=== PATIENT | female | born 1995 | race Caucasian/White ===

== ENCOUNTER 2017-11-18 07:12 | Emergency (ER) | payer OTHER ==
--- NOTE | 2017-11-18 07:56 | ED ---
Female Urogenital HPI - General Chief complaint: Vaginal Bleeding Stated complaint: female gu Time Seen by Provider: 11/18/17 07:27 Source: patient, RN notes reviewed Mode of arrival: ambulatory Limitations: no limitations - History of Present Illness Initial comments: This a 22-year-old female sent emergency Department chief complaint of vaginal spotting and . Patient states that she is A0 and states her last mental cycle was at the end of September. Patient states that she noticed light spotting when she wiped last night. Patient states she has no abdominal pain or cramping at this time. Patient admits to some nausea without vomiting. Denies any diarrhea, constipation, dysuria, hematuria, fever, chills. - Related Data Previous Rx's Medication Instructions Recorded Nitrofurantoin Monohyd/M-Cryst 100 mg PO Q12HR #14 cap 11/18/17 [Macrobid] Allergies Allergy/AdvReac Type Severity Reaction Status Date / Time No Known Allergies Allergy Verified 11/18/17 08:42 Review of Systems ROS Statement: Those systems with pertinent positive or pertinent negative responses have been documented in the HPI. ROS Other: All systems not noted in ROS Statement are negative. Past Medical History Past Medical History: No Reported History History of Any Multi-Drug Resistant Organisms: None Reported Past Surgical History: Section Past Anesthesia/Blood Transfusion Reactions: No Reported Reaction Past Psychological History: No Psychological Hx Reported Smoking Status: Never smoker Past Alcohol Use History: None Reported Past Drug Use History: None Reported General Exam Limitations: no limitations General appearance: alert, in no apparent distress Head exam: Present: atraumatic, normocephalic, normal inspection Neck exam: Present: normal inspection, full ROM. Absent: tenderness, meningismus, lymphadenopathy Respiratory exam: Present: normal lung sounds bilaterally. Absent: respiratory distress, wheezes, rales, rhonchi, stridor Cardiovascular Exam: Present: regular rate, normal rhythm, normal heart sounds. Absent: systolic murmur, diastolic murmur, rubs, gallop, clicks GI/Abdominal exam: Present: soft, normal bowel sounds. Absent: distended, tenderness, guarding, rebound, rigid Back exam: Absent: CVA tenderness (R), CVA tenderness (L) Skin exam: Present: warm, dry, intact, normal color. Absent: rash Course Vital Signs 11/18/17 07:13 Temperature 98.5 F Pulse Rate 82 Respiratory 18 Rate Blood Pressure 119/79 O2 Sat by Pulse 100 Oximetry Medical Decision Making - Medical Decision Making 22-year-old female presents emergency department for spotting early . Patient had ultrasound which was abnormal and there is a gestational sac but no pole. There is a large subchorionic bleed and patient needs to be rule out to have more . I did expand that she needs a repeat hCG in 2 days and repeat ultrasound by ELECTRIC BLANKET WIRER. Patient states she is scheduled follow-up appointment. Return parameters were discussed. Patient also has urinary tract infection which this was cultured and will be treated for - Lab Data Result diagrams: 11/18/17 07:54 Lab Results 11/18/17 11/18/17 11/18/17 Range/Units 07:54 07:54 07:54 WBC 13.0 H (3.8-10.6) k/uL RBC 4.97 (3.80-5.40) m/uL Hgb 13.3 (11.4-16.0) gm/dL Hct 40.5 (34.0-46.0) % MCV 81.5 (80.0-100.0) fL MCH 26.7 (25.0-35.0) pg MCHC 32.7 (31.0-37.0) g/dL RDW 14.1 (11.5-15.5) % Plt Count 322 (150-450) k/uL Neutrophils % 76 % Lymphocytes % 18 % Monocytes % 4 % Eosinophils % 1 % Basophils % 0 % Neutrophils # 9.8 H (1.3-7.7) k/uL Lymphocytes # 2.3 (1.0-4.8) k/uL Monocytes # 0.6 (0-1.0) k/uL Eosinophils # 0.1 (0-0.7) k/uL Basophils # 0.0 (0-0.2) k/uL HCG, Quant 45114.9 mIU/mL Urine Color Urine Appearance (Clear) Urine pH (5.0-8.0) Ur Specific [place] (1.001-1.035) Urine Protein (Negative) Urine Glucose (UA) (Negative) Urine Ketones (Negative) Urine Blood (Negative) Urine Nitrite (Negative) Urine Bilirubin (Negative) Urine Urobilinogen (<2.0) mg/dL Ur Leukocyte Esterase (Negative) Urine RBC (0-5) /hpf Urine WBC (0-5) /hpf Ur Squamous Epith Cells (0-4) /hpf Amorphous Sediment (None) /hpf Urine Bacteria (None) /hpf Urine Mucus (None) /hpf Blood Type A Positive Blood Type Recheck No 11/18/17 Range/Units 07:54 WBC (3.8-10.6) k/uL RBC (3.80-5.40) m/uL Hgb (11.4-16.0) gm/dL Hct (34.0-46.0) % MCV (80.0-100.0) fL MCH (25.0-35.0) pg MCHC (31.0-37.0) g/dL RDW (11.5-15.5) % Plt Count (150-450) k/uL Neutrophils % % Lymphocytes % % Monocytes % % Eosinophils % % Basophils % % Neutrophils # (1.3-7.7) k/uL Lymphocytes # (1.0-4.8) k/uL Monocytes # (0-1.0) k/uL Eosinophils # (0-0.7) k/uL Basophils # (0-0.2) k/uL HCG, Quant mIU/mL Urine Color Yellow Urine Appearance Cloudy H (Clear) Urine pH 5.5 (5.0-8.0) Ur Specific [place] 1.016 (1.001-1.035) Urine Protein Negative (Negative) Urine Glucose (UA) Negative (Negative) Urine Ketones Negative (Negative) Urine Blood Negative (Negative) Urine Nitrite Negative (Negative) Urine Bilirubin Negative (Negative) Urine Urobilinogen <2.0 (<2.0) mg/dL Ur Leukocyte Esterase Moderate H (Negative) Urine RBC 1 (0-5) /hpf Urine WBC 26 H (0-5) /hpf Ur Squamous Epith Cells 8 H (0-4) /hpf Amorphous Sediment Rare H (None) /hpf Urine Bacteria Moderate H (None) /hpf Urine Mucus Moderate H (None) /hpf Blood Type Blood Type Recheck Disposition Clinical Impression: Urinary tract infection, Threatened miscarriage in early Disposition: HOME SELF-CARE Condition: Stable Instructions: Threatened Miscarriage (ED) Additional Instructions: Please follow up for repeat hCG lab work and ultrasound. Please return to the Emergency Department if symptoms worsen or any other concerns. Prescriptions: Nitrofurantoin Monohyd/M-Cryst [Macrobid] 100 mg PO Q12HR #14 cap Is patient prescribed a controlled substance at d/c from ED?: No Referrals: None,Stated [Primary Care Provider] - 1-2 days Time of Disposition: 09:59
[2017-11-18 08:29] LABS: Amorphous Sediment,Urine Rare /hpf; Appearance,Urine Cloudy (Clear); Bacteria,Urine Moderate /hpf; Bilirubin,Urine Negative (Negative); Blood,Urine Negative (Negative); Color,Urine Yellow; Glucose,Urine (UA) Negative (Negative); Ketones,Urine Negative (Negative); Leukocyte Esterase,Urine Moderate (Negative); Mucus,Urine Moderate /hpf; Nitrite,Urine Negative (Negative); PH, Urine 5.5 (5.0-8.0); Protein,Urine Negative (Negative); RBC,Urine 1 /hpf (0-5); Specific Gravity,Urine 1.016 (1.001-1.035); Squamous Epithelial Cell,Urine 8 /hpf (0-4); Urobilinogen,Urine <2.0 mg/dL (<2.0); WBC,Urine 26 /hpf (0-5)
[2017-11-18 08:30] LABS: Basophils % (A) 0 %; Eosinophils # (A) 0.1 k/uL (0-0.7); Eosinophils % (A) 1 %; HCT 40.5 % (34.0-46.0); HGB 13.3 gm/dL (11.4-16.0); Lymphocytes # (A) 2.3 k/uL (1.0-4.8); Lymphocytes % (A) 18 %; MCH 26.7 pg (25.0-35.0); MCHC 32.7 g/dL (31.0-37.0); MCV 81.5 fL (80.0-100.0); Mean Platelet Volume 6.7; Monocytes # (A) 0.6 k/uL (0-1.0); Monocytes % (A) 4 %; Neutrophils # (A) 9.8 k/uL (1.3-7.7); Neutrophils % (A) 76 %; Platelet Count 322 k/uL (150-450); RBC 4.97 m/uL (3.80-5.40); RDW 14.1 % (11.5-15.5)
--- NOTE | 2017-11-18 08:30 | US ---
EXAMINATION TYPE: Transabdominal DATE OF EXAM: 05/11/17 COMPARISON: NONE CLINICAL HISTORY: Pain. Spotting yesterday EXAM PERFORMED: Transvaginal (TV) and Transabdominal (TA) EXAM MEASUREMENTS: GESTATIONAL AGE / DATING Physician Established: Not yet established Dates by LMP: LMP unknown Dates by First Scan: No previous this is first scan Dates by Current Scan for: No pole visualized, dates by gestational sac only ( 6 weeks/1 days ) EDC: 07/13/2018 MATERNAL ANATOMY Uterus: 8.3 x 4.7 x 6.6 cm Right Ovary: 3.2 x 2.4 x 2.5 cm Left Ovary: 3.4 x 1.6 x 1.4 cm Post CDS / Adnexa: wnl Presence of free fluid: No Presence of corpus luteal cyst: Yes, right ovary measuring 2.4 x 1.6 x 1.5 cm Presence of subchorionic bleed: Yes, to the right of the gestational sac measuring0.4 x 0.7 x 1.3 cm GESTATION / SURVEY MSD: 1.28 cm (6 weeks/1 days) Yolk Sac (normal less than 6mm): 3 mm IUP: No pole seen at this time, only possible early gestational sac vs other Date of LMP: LMP unsure Beta HcG (if available): Not available at this time No pole is visualized on this exam, only possible gestational sac and yolk sac. Gestational sac measures 6weeks/1day Small hypoechoic area measuring 0.4 x 0.7 x 1.3 cm is seen surrounding the gestational sac appearing to occupy approximately 25% the gestational sac diameter. IMPRESSION: 1. Although no pole is appreciated, yolk sac and gestational sac of early intrauterine pregnanc y are identified, however anembryonic cannot appendectomy excluded without identification o f a pole. Trending serum beta hCGs and short-term follow-up pelvic ultrasound in 5-7 days are r ecommended. 2. Small subchorionic hemorrhage or implantation bleed occupying approximately 25% the gestational sa c diameter.
[2017-11-18 10:22] VITALS: BP 117/80; PULSE 74; RESP 16; TEMP 97.9
== END 2017-11-18 10:21 | disposition home or self-care (01) ==
LOC: EC 07:12
DX: O20.0 Threatened abortion (principal); O23.41 Unspecified infection of urinary tract in pregnancy, first trimester; O99.89 Other specified diseases and conditions complicating pregnancy, childbirth and the puerperium; R11.0 Nausea; Z98.890 Other specified postprocedural states; Z3A.01 Less than 8 weeks gestation of pregnancy
CPT/HCPCS: 36415; 76801; 76817; 81001; 84702; 85025; 86900; 86901; 99284

== ENCOUNTER → 2017-11-20 | Outpatient (CLI) | payer SELFPAY | END | disposition home or self-care (01) | LOC: LABWHC1 09:03 | PROVIDERS: ATTEND Physician Assistant | DX: O20.0 Threatened abortion (principal) | CPT/HCPCS: 36415; 84702 ==

== ENCOUNTER 2018-01-11 03:31 | Emergency (ER) | payer OTHER ==
--- NOTE | 2018-01-11 03:43 | ED ---
General Adult HPI - General Chief complaint: Abdominal Pain Stated complaint: Spotting, 15 Wks Time Seen by Provider: 01/11/18 03:42 Source: patient Mode of arrival: ambulatory Limitations: no limitations - History of Present Illness Initial comments: Carolina is a 22-year-old he male who is currently approximately 12 weeks who presents the emergency department today for evaluation of noticing bright red blood on the toilet paper after she wiped. Patient reports that she had some mild abdominal cramping which is not atypical for her is she has been experiencing some significant constipation during this . She states that she sat on the toilet and straining to have a very firm towel movement. Patient reports that afterwards she white and noted some bright red blood on the toilet paper. She's never noticed this before. She was uncertain if the blood came from the vagina or her rectal's face. She's not had any further bleeding since that time but decided to come to the ER for evaluation. Patient denies any additional complaints. He states that she's been dealing with some constipation but was uncertain what was safe to take in so she has not been taking anything. - Related Data Home Medications Medication Instructions Recorded Confirmed Pnv,Calcium 72/Iron/Folic Acid 1 tablet PO DAILY 01/11/18 01/11/18 [ Plus Tablet] Previous Rx's Medication Instructions Recorded Polyethylene Glycol 3350 [Miralax] 17 gm PO DAILY #255 gm 01/11/18 Allergies Allergy/AdvReac Type Severity Reaction Status Date / Time No Known Allergies Allergy Verified 01/11/18 03:38 Review of Systems ROS Statement: Those systems with pertinent positive or pertinent negative responses have been documented in the HPI. ROS Other: All systems not noted in ROS Statement are negative. Past Medical History Past Medical History: No Reported History History of Any Multi-Drug Resistant Organisms: None Reported Past Surgical History: Section Past Anesthesia/Blood Transfusion Reactions: No Reported Reaction Past Psychological History: No Psychological Hx Reported Smoking Status: Never smoker Past Alcohol Use History: None Reported Past Drug Use History: None Reported General Exam - General Exam Comments Initial Comments: Physical Exam GENERAL: Patient is well-developed and well-nourished. Patient is nontoxic and well- hydrated and is in no distress. HENT: Normocephalic, Atraumatic. EYES: PERRL, EOMI PULMONARY: Unlabored respirations. No audible rales rhonchi or wheezing was noted. CARDIOVASCULAR: There is a regular rate and rhythm without any murmurs gallops or rubs. ABDOMEN: Soft and nontender with normal bowel sounds. Bedside ultrasound reveals an active fetus with a heart rate 140s SKIN: Skin is clear with no lesions or rashes and otherwise unremarkable. : Deferred External genitalia pelvic exam with no bleeding, no cervical motion tenderness, no vaginal discharge Rectal exam reveals palpable internal hemorrhoids with some bright red blood on exam NEUROLOGIC: Patient is alert and oriented x3. Moving all extremities spontaneously MUSCULOSKELETAL: Normal extremities with adequate strength and full range of motion. No lower extremity swelling or edema. No calf tenderness. PSYCHIATRIC: Normal psychiatric evaluation. Limitations: no limitations Limitations: no limitations Course Vital Signs 01/11/18 03:34 Temperature 98.1 F Pulse Rate 72 Respiratory 18 Rate Blood Pressure 120/60 O2 Sat by Pulse 100 Oximetry Medical Decision Making - Medical Decision Making Patient was seen and evaluated, history is obtained from the patient. Patient has been suffering with constipation, reports bright red blood upon wiping was uncertain if he came from the rectum or the vagina. Patient has no history of rectal bleeding in the past. She has no known inflammatory or irritable bowel diseases. Physical exam reveals a normal pelvic exam with no bleeding or discharge, no cervical motion tenderness. Rectal exam does reveal couple more internal hemorrhoids and some bright red blood. This was discussed with patient who expresses relief. A bedside ultrasound was performed to reassure the patient. At that ultrasound did reveal an active fetus, we were able to visualize the heart rate. Heart rate was in the 140s. Fetus was moving extremities mother was very reassure that she was able to see the baby's body, arms legs fingers and toes. At this time patient is safe for discharge home. I will prescribe MiraLAX also encouraged patient to increase her water and fruit intake. All questions pertaining care were answered return parameters were discussed patient was discharged home in stable condition. Disposition Clinical Impression: Bleeding internal hemorrhoids Disposition: HOME SELF-CARE Condition: Good Instructions: Hemorrhoids (DC), Rectal Bleeding (ED) Prescriptions: Polyethylene Glycol 3350 [Miralax] 17 gm PO DAILY #255 gm Is patient prescribed a controlled substance at d/c from ED?: No Referrals: None,Stated [Primary Care Provider] - 1-2 days
[2018-01-11 04:57] VITALS: BP 121/89; PULSE 78; RESP 19; TEMP 98.6
== END 2018-01-11 04:40 | disposition home or self-care (01) ==
LOC: EC 03:31
DX: O22.41 Hemorrhoids in pregnancy, first trimester (principal); Z3A.12 12 weeks gestation of pregnancy
CPT/HCPCS: 99284

== ENCOUNTER 2018-04-13 00:54 | Observation (INO) | payer OTHER ==
[2018-04-13] MEDS ORDERED: HYDROmorphone 1 MG/ML 1 ML SYRINGE IVP STA (01:19)
[2018-04-13 01:35] LABS: Basophils % (A) 0 %; Eosinophils # (A) 0.2 k/uL (0-0.7); Eosinophils % (A) 1 %; HCT 30.5 % (34.0-46.0); HGB 9.8 gm/dL (11.4-16.0); Hypochromasia Slight; Lymphocytes # (A) 2.9 k/uL (1.0-4.8); Lymphocytes % (A) 14 %; MCH 27.7 pg (25.0-35.0); MCHC 32.1 g/dL (31.0-37.0); MCV 86.3 fL (80.0-100.0); Mean Platelet Volume 6.6; Monocytes # (A) 0.8 k/uL (0-1.0); Monocytes % (A) 4 %; Neutrophils # (A) 17.3 k/uL (1.3-7.7); Neutrophils % (A) 81 %; Platelet Count 322 k/uL (150-450); RBC 3.53 m/uL (3.80-5.40); WBC 21.5 k/uL (3.8-10.6)
[2018-04-13 02:07] LABS: Amorphous Sediment,Urine Rare /hpf; Appearance,Urine Cloudy (Clear); Bacteria,Urine Few /hpf; Bilirubin,Urine Negative (Negative); Blood,Urine Negative (Negative); Color,Urine Light Yellow; Glucose,Urine (UA) Negative (Negative); Ketones,Urine Negative (Negative); Leukocyte Esterase,Urine Large (Negative); Mucus,Urine Rare /hpf; Nitrite,Urine Negative (Negative); Protein,Urine Trace (Negative); RBC,Urine 3 /hpf (0-5); Specific Gravity,Urine 1.011 (1.001-1.035); Squamous Epithelial Cell,Urine 6 /hpf (0-4); Urobilinogen,Urine <2.0 mg/dL (<2.0); WBC,Urine 55 /hpf (0-5)
[2018-04-13] MEDS ORDERED: HYDROmorphone 0.5 MG/0.5 ML SYRINGE IVP PRN (02:17)
[2018-04-13] MEDS ORDERED: HYDROmorphone 1 MG/ML 1 ML SYRINGE IVP PRN (02:25)
[2018-04-13 03:20] VITALS: BMI 36.1
--- NOTE | 2018-04-13 05:41 | P.HPOB ---
History of Present Illness H&P Date: 04/13/18 Chief Complaint: Right-sided abdominal pain This is a 22-year-old 2 para 1001 woman with an estimated due date of who presents at 26-4/7 weeks' gestation with severe right lower quadrant and right flank pain. Should been treated for urinary tract infection over the last week however had worsening abdominal pain over the period of several hours. She presented to labor and delivery triage and well here with urine specimen there is noted to be visible stones in the urine collection. She denied vaginal bleeding or blood in the urine however does have dysuria. She denies fevers, chills, nausea, vomiting, contractions. She has noted good movement. Urinalysis shows large amount of WBCs and some sediment. She has elevated WBCs of greater than 22,000 on blood work. She is therefore admitted for probable pyelonephritis, right-sided, and kidney stones. Patient reports that prior to she had abdominal imaging that did show 3 right-sided kidney stones. She is not however had any other treatment for this condition. Her obstetric history is significant for primary low transverse section for breech presentation in 2013. Review of Systems Constitutional: Denies chills, Denies fever Cardiovascular: Denies chest pain, Denies shortness of breath Respiratory: Denies cough Gastrointestinal: Reports abdominal pain, Reports constipation, Denies nausea, Denies vomiting Genitourinary: Reports dysuria, Reports flank pain, Reports kidney stones, Reports urgency, Denies hematuria Musculoskeletal: Reports low back pain Past Medical History Past Medical History: No Reported History History of Any Multi-Drug Resistant Organisms: None Reported Past Surgical History: Section Past Anesthesia/Blood Transfusion Reactions: No Reported Reaction Past Psychological History: No Psychological Hx Reported Smoking Status: Never smoker Past Alcohol Use History: None Reported Past Drug Use History: None Reported - Past Family History Mother Family Medical History: No Reported History Medications and Allergies Home Medications Medication Instructions Recorded Confirmed Type Pnv,Calcium 72/Iron/Folic Acid 1 tablet PO DAILY 01/11/18 04/13/18 History [ Plus Tablet] Allergies Allergy/AdvReac Type Severity Reaction Status Date / Time No Known Allergies Allergy Verified 04/13/18 00:57 Exam Vital Signs Temp Pulse Resp BP Pulse Ox 04/13/18 01:00 97.8 F 84 16 123/70 99 Intake and Output 04/12/18 04/12/18 04/13/18 14:59 22:59 06:59 Other: Weight 89.766 kg This is a comfortable appearing female. HEENT exam is unremarkable. Her breathing is unlabored and her heart is a regular rate and rhythm. The abdomen is gravid, soft and nontender with no rebound, no guarding and mild right flank pain. No left flank pain. No active vaginal bleeding noted. No lower extremity swelling or rashes appreciated. heart tones were reassuring for gestational age by external monitoring with no contraction activity noted. Results Result Diagrams: 04/13/18 01:30 Abnormal Lab Results - Last 24 Hours (Table) 04/13/18 04/13/18 Range/Units 01:15 01:30 WBC 21.5 H (3.8-10.6) k/uL RBC 3.53 L (3.80-5.40) m/uL Hgb 9.8 L (11.4-16.0) gm/dL Hct 30.5 L (34.0-46.0) % Neutrophils # 17.3 H (1.3-7.7) k/uL Urine Appearance Cloudy H (Clear) Urine Protein Trace H (Negative) Ur Leukocyte Esterase Large H (Negative) Urine WBC 55 H (0-5) /hpf Urine WBC Clumps Few H (None) /hpf Ur Squamous Epith Cells 6 H (0-4) /hpf Amorphous Sediment Rare H (None) /hpf Urine Bacteria Few H (None) /hpf Urine Mucus Rare H (None) /hpf Assessment and Plan (1) 26 weeks gestation of Current Visit: Yes Status: Acute Code(s): Z3A.26 - 26 WEEKS GESTATION OF SNOMED Code(s): 40269181 (2) Pyelonephritis affecting Current Visit: Yes Status: Acute Code(s): O23.00 - INFECTIONS OF KIDNEY IN , UNSPECIFIED TRIMESTER SNOMED Code(s): 74587568 (3) Kidney stone complicating Current Visit: Yes Status: Acute Code(s): O26.839 - RELATED RENAL DISEASE, UNSPECIFIED TRIMESTER; N20.0 - CALCULUS OF KIDNEY SNOMED Code(s): 31868848 Plan: 22-year-old 2 para 1 at 26+ weeks gestation with right flank pain, passage of kidney stone and pyelonephritis. Pain is much better with Dilaudid IV 1. She is given Rocephin IM 1, repeat in 12 hours and monitor progress. Continue to strain urine for stones and IV fluid rehydration. status currently reassuring.
[2018-04-13] MEDS ORDERED: ONDANSETRON 4 MG/2 ML VIAL IVP PRN (08:21)
[2018-04-13] MEDS ORDERED: ACETAMINOPHEN TAB 325 MG TAB PO PRN (08:21)
[2018-04-13] MEDS: LACTATED RINGERS 1,000 ML IV SCH ×6 (11:00→20:25)
[2018-04-13 12:31] VITALS: RESP 16
[2018-04-14 00:26] VITALS: BP 116/57; PULSE 95; TEMP 98.3
[2018-04-14] MEDS: LACTATED RINGERS 1,000 ML IV SCH (06:14)
[2018-04-14 07:53] LABS: Basophils % (A) 0 %; Eosinophils # (A) 0.2 k/uL (0-0.7); Eosinophils % (A) 1 %; HCT 27.2 % (34.0-46.0); HGB 8.7 gm/dL (11.4-16.0); Hypochromasia Slight; Lymphocytes # (A) 1.9 k/uL (1.0-4.8); Lymphocytes % (A) 16 %; MCV 87.4 fL (80.0-100.0); Mean Platelet Volume 6.7; Monocytes # (A) 0.6 k/uL (0-1.0); Monocytes % (A) 5 %; Neutrophils # (A) 9.5 k/uL (1.3-7.7); Neutrophils % (A) 77 %; Platelet Count 262 k/uL (150-450); RBC 3.11 m/uL (3.80-5.40); RDW 14.1 % (11.5-15.5); WBC 12.4 k/uL (3.8-10.6)
--- NOTE | 2018-04-14 08:57 | P.DS ---
Providers Date of admission: 04/13/18 13:15 Expected date of discharge: 04/14/18 Attending physician: Rayne Lechuga Primary care physician: Stated None - Discharge Diagnosis(es) (1) Kidney stone complicating Current Visit: Yes Status: Acute Hospital Course: The patient is a 22-year-old woman admitted at 26+ weeks of with a diagnosis of presumptive pyelonephritis. She also has a known history of kidney stones in the right kidney and presented with significant pain in the right lower quadrant and flank. As her white count was approximately 22,000, the diagnosis of pyelonephritis was made and she was started on IV Rocephin. Shortly after admission, she passed at least 1 kidney stone and had almost immediate resolution of her pain. She was afebrile for her entire hospital stay and was found on hospital day #2 to have a white count in the normal range at approximately 12. Her pain had resolved entirely as noted above and she was tolerating regular diet. She therefore was deemed stable for discharge and was discharged home to follow-up in the office as previously scheduled. She was to continue her antibiotics the for urinary tract infection which she had been given at her previous visit and to finish that course. She is otherwise to call for anything else that concerned her from her perspective. Discharge medications included only her continued antibiotic which is either Bactrim DS or Macrobid though the patient is uncertain. Otherwise she was to continue routine vitamins and use [id number] analgesic pain medications. She understood all of her instructions and agrees to follow-up as above. Procedures: #1. IV hydration #2. IV antibiotics Patient Condition at Discharge: Stable Plan - Discharge Summary New Discharge Prescriptions: No Action Pnv,Calcium 72/Iron/Folic Acid [ Plus Tablet] 1 tablet PO DAILY Discharge Medication List Pnv,Calcium 72/Iron/Folic Acid [ Plus Tablet] 1 tablet PO DAILY 01/11/18 [History] Follow up Appointment(s)/Referral(s): Aguila Khan MD [STAFF PHYSICIAN] - 3 Weeks Discharge Disposition: HOME SELF-CARE
== END 2018-04-14 09:15 | disposition home or self-care (01) ==
LOC: FBPOP 00:54 → 4FBP 02:30 → INTOOBSV 13:15 → OBSVTOIN 13:15 → UNDODISIN 04-14 09:15
PROVIDERS: ADMIT Obstetrics & Gynecology; ATTEND Obstetrics & Gynecology
DX: O23.02 Infections of kidney in pregnancy, second trimester (principal); O26.832 Pregnancy related renal disease, second trimester; N20.0 Calculus of kidney; Z3A.26 26 weeks gestation of pregnancy; Z79.899 Other long term (current) drug therapy; Z87.442 Personal history of urinary calculi; O34.219 Maternal care for unspecified type scar from previous cesarean delivery
CPT/HCPCS: 96376; 96361; 96365; 96375; 85025 ×2; 81001; G0378 ×3; G0463; J0696 ×2; J1170; 96374; 99214

== ENCOUNTER 2018-06-16 08:53 | Emergency (ER) | payer OTHER ==
[2018-06-16 08:58] VITALS: BP 106/66; PULSE 103; RESP 18; TEMP 98.2
--- NOTE | 2018-06-16 09:10 | ED ---
ENT HPI - General Chief complaint: ENT Stated complaint: Sore throat Time Seen by Provider: 06/16/18 09:04 Source: patient, RN notes reviewed Mode of arrival: ambulatory Limitations: no limitations - History of Present Illness Initial comments: 23-year-old female presents emergency Department with chief complaint of sore throat. Patient states this started 6 days ago progressively getting worse. She's had no relief with [id number] medications including Tylenol, cough drops, Chloraseptic spray. Patient states that she's had some fever and chills. Patient is 35 weeks with no comp patients no abdominal complaints. Patient states she has swollen lymph nodes denies any ear pain. She does have slight posterior drainage but no sinus pressure no headache no dizziness. - Related Data Home Medications Medication Instructions Recorded Confirmed Pnv,Calcium 72/Iron/Folic Acid 1 tablet PO DAILY 01/11/18 04/13/18 [ Plus Tablet] Previous Rx's Medication Instructions Recorded Amoxicillin 500 mg PO Q8H #30 capsule 06/16/18 Fluticasone Nasal [place] [Flonase 2 spr EA NOSTRIL DAILY #1 bottle 06/16/18 Nasal [place]] Allergies Allergy/AdvReac Type Severity Reaction Status Date / Time No Known Allergies Allergy Verified 04/13/18 00:57 Review of Systems ROS Statement: Those systems with pertinent positive or pertinent negative responses have been documented in the HPI. ROS Other: All systems not noted in ROS Statement are negative. Past Medical History Past Medical History: No Reported History History of Any Multi-Drug Resistant Organisms: None Reported Past Surgical History: Section Past Anesthesia/Blood Transfusion Reactions: No Reported Reaction Past Psychological History: No Psychological Hx Reported Smoking Status: Never smoker Past Alcohol Use History: None Reported Past Drug Use History: None Reported - Past Family History Mother Family Medical History: No Reported History General Exam Limitations: no limitations General appearance: alert, in no apparent distress Head exam: Present: atraumatic, normocephalic, normal inspection Eye exam: Present: normal appearance, PERRL, EOMI. Absent: scleral icterus, conjunctival injection, periorbital swelling ENT exam: Present: mucous membranes moist, TM's normal bilaterally, normal external ear exam. Absent: normal oropharynx (Posterior erythema noted) Neck exam: Present: normal inspection, full ROM, lymphadenopathy. Absent: tenderness, meningismus Respiratory exam: Present: normal lung sounds bilaterally. Absent: respiratory distress, wheezes, rales, rhonchi, stridor Cardiovascular Exam: Present: regular rate, normal rhythm, normal heart sounds. Absent: systolic murmur, diastolic murmur, rubs, gallop, clicks Neurological exam: Present: alert, oriented X3, CN II-XII intact Course Vital Signs 06/16/18 08:55 Temperature 98.2 F Pulse Rate 103 H Respiratory 18 Rate Blood Pressure 106/66 O2 Sat by Pulse 98 Oximetry Medical Decision Making - Medical Decision Making 23-year-old female presented for sore throat. Patient we treated for strep pharyngitis symptoms,cervical lymphadenopathy,fever.Patient was started on amoxicillin and return parameters were discussed. Disposition Clinical Impression: Strep throat, Cervical lymphadenopathy Disposition: HOME SELF-CARE Condition: Stable Instructions (If sedation given, give patient instructions): Pharyngitis (ED) Additional Instructions: Please return to the Emergency Department if symptoms worsen or any other concerns. Prescriptions: Amoxicillin 500 mg PO Q8H #30 capsule Fluticasone Nasal [place] [Flonase Nasal [place]] 2 spr EA NOSTRIL DAILY #1 bottle Is patient prescribed a controlled substance at d/c from ED?: No Referrals: None,Stated [Primary Care Provider] - 1-2 days Time of Disposition: 09:10
== END 2018-06-16 09:26 | disposition home or self-care (01) ==
LOC: EC 08:53
DX: O99.513 Diseases of the respiratory system complicating pregnancy, third trimester (principal); J02.0 Streptococcal pharyngitis; Z98.890 Other specified postprocedural states; Z3A.35 35 weeks gestation of pregnancy
CPT/HCPCS: 99282

== ENCOUNTER 2018-07-11 10:23 | Inpatient (IN) | payer OTHER ==
[2018-07-07 14:08] VITALS: BMI 36.5
[2018-07-11] MEDS ORDERED: CITRIC ACID-SODIUM CITRATE 15 ML CUP PO ONE (10:26)
[2018-07-11] MEDS ORDERED: ceFAZolin IN SWFI 2 GM/20 ML SYRINGE IVP ONE (10:26)
[2018-07-11] MEDS: LACTATED RINGERS 1,000 ML IV SCH ×2 (10:48→21:38)
[2018-07-11 11:05] LABS: Anisocytosis Slight; Basophils # (A) 0.1 k/uL (0-0.2); Basophils % (A) 0 %; Eosinophils # (A) 0.2 k/uL (0-0.7); Eosinophils % (A) 2 %; HCT 30.6 % (34.0-46.0); HGB 9.4 gm/dL (11.4-16.0); Hypochromasia Marked; Lymphocytes # (A) 2.9 k/uL (1.0-4.8); Lymphocytes % (A) 22 %; MCH 23.3 pg (25.0-35.0); MCHC 30.6 g/dL (31.0-37.0); MCV 76.4 fL (80.0-100.0); Mean Platelet Volume 7.3; Microcytosis Slight; Monocytes # (A) 0.6 k/uL (0-1.0); Monocytes % (A) 5 %; Neutrophils # (A) 9.4 k/uL (1.3-7.7); Neutrophils % (A) 70 %; Platelet Count 318 k/uL (150-450); Poikilocytosis Slight; RBC 4.01 m/uL (3.80-5.40); RDW 16.2 % (11.5-15.5); WBC 13.4 k/uL (3.8-10.6)
[2018-07-11] MEDS ORDERED: KETOROLAC 30 MG/ML 1 ML VIAL ONE (12:09)
[2018-07-11] MEDS ORDERED: ONDANSETRON 4 MG/2 ML VIAL ONE (12:09)
[2018-07-11] MEDS ORDERED: MORPHINE SULFATE (PF) 0.3 MG/0.3 ML SYR ONE (12:09)
[2018-07-11] MEDS ORDERED: LACTATED RINGERS 1,000 ML BAG IV ONE (12:09)
[2018-07-11] MEDS ORDERED: OXYTOCIN 10 UNIT/ML 1 ML VIAL ONE (12:09)
[2018-07-11] MEDS ORDERED: NALBUPHINE 10 MG/ML (1 ML AMP) ONE (12:09)
[2018-07-11] MEDS ORDERED: ZOLPIDEM 5 MG TAB PO PRN (12:59)
[2018-07-11] MEDS ORDERED: NALOXONE 0.4 MG/ML 1 ML VIAL IV PRN ×2 (12:59→13:25)
[2018-07-11] MEDS ORDERED: METOCLOPRAMIDE 5 MG/ML 2 ML VIAL IVP PRN (12:59)
[2018-07-11] MEDS ORDERED: ACETAMINOPHEN TAB 325 MG TAB PO PRN (12:59)
[2018-07-11] MEDS ORDERED: diphenhydrAMINE 50 MG/ML 1 ML VIAL IVP PRN ×2 (12:59)
[2018-07-11] MEDS ORDERED: HYDROcodone/APAP 7.5-325MG 1 EACH TAB PO PRN (12:59)
[2018-07-11] MEDS ORDERED: diphenhydrAMINE 25 MG CAP PO PRN (12:59)
[2018-07-11] MEDS ORDERED: ONDANSETRON 4 MG/2 ML VIAL IVP PRN (12:59)
[2018-07-11] MEDS ORDERED: diphenhydrAMINE 50 MG CAP PO PRN (12:59)
[2018-07-11] MEDS ORDERED: LACTATED RINGERS 1,000 ML IV SCH (13:00)
[2018-07-11] MEDS ORDERED: OXYTOCIN 20 UNITS/1000 ML NS 1,000 ML IV SCH (13:00)
--- NOTE | 2018-07-11 13:04 | P.HPOB ---
History of Present Illness H&P Date: 07/11/18 Chief Complaint: 39-2/7 weeks, previous section, requesting repeat The patient is a 23-year-old 2 para 1001 admitted at 39-2/7 weeks as established by last menstrual period and confirmed by 22 week ultrasound. She is admitted for repeat low transverse section having undergone a previous primary section for breech presentation. Her has been essentially uncomplicated though she did present late for care at approximately 22 weeks of gestation. Group B strep status is negative. Obstetrical history: 2 para 1001 with 1 previous delivery for breech as noted above. EDC of 07/16/2018 was established by last menstrual period and confirmed by 22 week ultrasound. Laboratory workup demonstrates a blood type of A+ with a negative antibody screen rubella status is immune. The remainder of the laboratory workup was within normal limits. One hour Glucola was within normal limits and group B strep status is negative. Gynecologic history: Unremarkable with no history of any infections to include STDs. Review of Systems Review of systems is confined to history of present illness. Past Medical History Past Medical History: No Reported History Additional Past Medical History / Comment(s): states currently has nasal congestion r/t allergies, hx kidney stones History of Any Multi-Drug Resistant Organisms: None Reported Past Surgical History: Section Past Anesthesia/Blood Transfusion Reactions: No Reported Reaction Past Psychological History: No Psychological Hx Reported, Anxiety Smoking Status: Never smoker Past Alcohol Use History: None Reported Past Drug Use History: None Reported - Past Family History Mother Family Medical History: No Reported History Medications and Allergies Home Medications Medication Instructions Recorded Confirmed Type Pnv,Calcium 72/Iron/Folic Acid 1 tablet PO DAILY 01/11/18 07/07/18 History [ Plus Tablet] Ferrous Sulfate [Feosol] 325 mg PO DAILY 07/07/18 07/07/18 History Allergies Allergy/AdvReac Type Severity Reaction Status Date / Time No Known Allergies Allergy Verified 07/07/18 14:04 Exam Vital Signs Temp Pulse Resp BP 07/11/18 10:26 97.2 F L 93 16 121/76 In general, this is a well-developed, well-nourished white female in no acute distress. Her heart has a regular rhythm and rate without murmur. Her lungs are clear to auscultation bilaterally in all butler. Her abdomen is gravid, nondistended, has normal active bowel sounds, is soft, nontender, and without any palpable masses aside from uterine fundus. Her extremities are without any cyanosis, clubbing, or significant edema and are nontender to palpation. Digital cervical examination is deferred. Results Result Diagrams: 07/11/18 10:40 Abnormal Lab Results - Last 24 Hours (Table) 07/11/18 Range/Units 10:40 WBC 13.4 H (3.8-10.6) k/uL Hgb 9.4 L (11.4-16.0) gm/dL Hct 30.6 L (34.0-46.0) % MCV 76.4 L (80.0-100.0) fL MCH 23.3 L (25.0-35.0) pg MCHC 30.6 L (31.0-37.0) g/dL RDW 16.2 H (11.5-15.5) % Neutrophils # 9.4 H (1.3-7.7) k/uL Assessment and Plan (1) Previous section Current Visit: Yes Status: Acute Code(s): Z98.891 - HISTORY OF UTERINE SCAR FROM PREVIOUS SURGERY SNOMED Code(s): 465138201 (2) Term Current Visit: Yes Status: Acute Code(s): Z34.90 - ENCNTR FOR SUPRVSN OF NORMAL , UNSP, UNSP TRIMESTER SNOMED Code(s): 38766934 Plan: The patient is admitted for repeat low transverse section. There was an compilations the procedure been thoroughly discussed and she has understood and agreed to proceed.
--- NOTE | 2018-07-11 13:10 | P.OP ---
Date of Procedure: 07/11/18 Preoperative Diagnosis: #1. 39-2/7 weeks intrauterine , previous section requesting repeat Postoperative Diagnosis: Same Procedure(s) Performed: #1. Repeat low transverse section Anesthesia: spinal Surgeon: Aguila Khan Dining Room Host #1: Rayne Lechuga Estimated Blood Loss (ml): 600 IV fluids (ml): 1,000 Urine output (ml): 200 Pathology: none sent Condition: stable Disposition: PACU Operative Findings: The uterus, tubes, and ovaries were entirely normal to inspection. The lower uterine segment was relatively thin. Otherwise there was minimal to average scarring at the level of fascia and rectus muscles. The bladder peritoneum was scarred relatively high. She was delivered of a viable 8 lbs. 12 oz. baby boy with Apgars of 9 at 1 minute and 9 at 5 minutes delivered in the left occiput anterior position. There was a nuchal cord 1 which was reduced upon delivery of the head. The placenta was delivered manually, intact, and grossly normal with a grossly normal three-vessel cord. Description of Procedure: The patient was prepped and draped in usual fashion after spinal anesthesia was administered by the anesthesiologist. A Pfannenstiel incision was made through pre-existing scar and extended into the abdominal cavity without difficulty. The bladder peritoneum was noted to be relatively high from the previous section and was therefore elevated, incised, and reflected distally. A 2 cm incision was made in the transverse plane of the lower uterine segment to enter the uterus at which time the lower uterine segment was noted to be significantly thin. Clear fluid was encountered. The incision was extended in both directions using the bandage scissors. The head was delivered up and through the incision where the nose and mouth were thoroughly suctioned. A nuchal cord was noted 1 and reduced. The remainder of the was delivered onto the field where the cord was doubly clamped, cut, and the passed for resuscitative measures with weight and Apgars as noted above. A segment of cord was doubly clamped, cut, and set aside should cord gases become necessary. The placenta was delivered manually and intact as noted above. The uterus was exteriorized and the interior cavity swept of any remaining placental or membranous fragments. The margins of the incision were grasped with Ford clamps and the incision was closed in 2 layers. The first layer was a running locking stitch of 0 chromic catgut followed by a running imbricating stitch of 0 chromic catgut, each from margin to margin. Hemostasis appeared to be excellent. The posterior cul-de-sac was suctioned with a guard and the uterine and ovarian findings were normal as noted above. The uterus was replaced within the abdominal cavity and the incision examined and again found to be hemostatic. After sweeping the gutters of any remaining blood, fluid, or clot, the parietal peritoneum was loosely reapproximated and layer of muscles examined and found to be hemostatic. The fascia was closed with a single running stitch of 0 Vicryl proceeding from lateral margins lateral margin. The subcutaneous tissues were irrigated, made hemostatic with the Bovie, and reapproximated with a running stitch of 30 plain catgut. The skin was reapproximated with a running subcuticular stitch of 4-0 Vicryl followed by half-inch Steri-Strips placed with Mastisol. Estimated blood loss for the case is approximately 600 mL. There were no complications. All sponge, instrument, and needle counts were correct. Both mother and infant are resting comfortably in recovery.
[2018-07-11] MEDS ORDERED: NALBUPHINE 10 MG/ML (1 ML AMP) IV PRN (13:25)
[2018-07-11] MEDS: KETOROLAC 30 MG/ML 1 ML VIAL IVP PRN (19:54)
[2018-07-11] MEDS: SENNOSIDES-DOCUSATE SODIUM 1 EACH TAB PO SCH (19:55)
[2018-07-12] MEDS: KETOROLAC 30 MG/ML 1 ML VIAL IVP PRN (03:59)
[2018-07-12] MEDS: LACTATED RINGERS 1,000 ML IV SCH (04:26)
[2018-07-12 07:29] LABS: Basophils # (A) 0.1 k/uL (0-0.2); Basophils % (A) 0 %; Eosinophils # (A) 0.2 k/uL (0-0.7); Eosinophils % (A) 1 %; HCT 27.1 % (34.0-46.0); HGB 8.4 gm/dL (11.4-16.0); Hypochromasia Marked; Lymphocytes # (A) 2.2 k/uL (1.0-4.8); Lymphocytes % (A) 15 %; MCH 23.7 pg (25.0-35.0); MCHC 30.9 g/dL (31.0-37.0); MCV 76.8 fL (80.0-100.0); Mean Platelet Volume 7.4; Microcytosis Slight; Monocytes # (A) 0.6 k/uL (0-1.0); Monocytes % (A) 4 %; Neutrophils % (A) 77 %; Platelet Count 289 k/uL (150-450); Poikilocytosis Slight; RBC 3.53 m/uL (3.80-5.40); RDW 15.8 % (11.5-15.5); WBC 14.2 k/uL (3.8-10.6)
[2018-07-12] MEDS: IBUPROFEN 600 MG TAB PO PRN ×2 (08:07→20:43)
[2018-07-12] MEDS: SENNOSIDES-DOCUSATE SODIUM 1 EACH TAB PO SCH ×2 (08:07→20:44)
--- NOTE | 2018-07-12 09:49 | P.PNOBGPC ---
Subjective - Subjective Interval history: Patient had fairly significant nausea yesterday, has now resolved entirely. Tolerating regular diet. Patient reports: Reports appetite normal, Reports voiding normally, Reports pain well controlled, Reports ambulating normally [place]: doing well Objective - Vital Signs Latest vital signs: Vital Signs Temp Pulse Resp BP Pulse Ox 07/12/18 08:00 98.2 F 71 18 104/63 07/12/18 07:59 98.2 F 71 18 104/63 07/12/18 05:56 16 07/12/18 04:00 98.2 F 76 18 113/71 99 07/12/18 02:00 16 07/11/18 23:47 97.7 F 64 16 112/70 98 07/11/18 22:00 16 98 07/11/18 20:00 98.1 F 75 16 126/68 98 07/11/18 17:48 18 07/11/18 15:30 92 16 125/61 99 07/11/18 14:30 97.8 F 70 16 117/63 99 07/11/18 14:00 97.3 F L 74 18 120/59 100 07/11/18 13:30 97.2 F L 76 16 108/58 100 07/11/18 13:15 97.1 F L 80 18 128/60 98 07/11/18 13:00 96.7 F L 91 18 118/62 98 07/11/18 10:26 97.2 F L 93 16 121/76 Intake and Output 07/11/18 07/12/18 07/12/18 22:59 06:59 14:59 Output Total 400 1150 400 Balance -400 -1150 -400 Output: Urine 400 450 400 Uretheral (Martinez) 400 Emesis 700 Other: # Voids 1 - Exam Extremities: Present: normal Abdomen: Present: normal appearance, soft. Absent: distention, tenderness Incision: Present: normal, dry, intact Uterus: Present: normal, firm (The uterine fundus is tonic and appropriately tender at the umbilicus.) - Labs Labs: Abnormal Lab Results - Last 24 Hours (Table) 07/11/18 07/12/18 Range/Units 10:40 06:47 WBC 13.4 H 14.2 H (3.8-10.6) k/uL RBC 3.53 L (3.80-5.40) m/uL Hgb 9.4 L 8.4 L (11.4-16.0) gm/dL Hct 30.6 L 27.1 L (34.0-46.0) % MCV 76.4 L 76.8 L (80.0-100.0) fL MCH 23.3 L 23.7 L (25.0-35.0) pg MCHC 30.6 L 30.9 L (31.0-37.0) g/dL RDW 16.2 H 15.8 H (11.5-15.5) % Neutrophils # 9.4 H 11.0 H (1.3-7.7) k/uL Assessment and Plan (1) Previous section Current Visit: Yes Status: Acute Code(s): Z98.891 - HISTORY OF UTERINE SCAR FROM PREVIOUS SURGERY SNOMED Code(s): 546528324 (2) Term Current Visit: Yes Status: Acute Code(s): Z34.90 - ENCNTR FOR SUPRVSN OF NORMAL , UNSP, UNSP TRIMESTER SNOMED Code(s): 57540543 (3) S/P section Current Visit: Yes Status: Acute Code(s): Z98.89 - OTHER SPECIFIED POSTPROCEDURAL STATES * DO NOT USE * SNOMED Code(s): 153134923 Plan: Continue routine postoperative care. I would anticipate discharge home tomorrow pending no complications. I strongly encouraged the patient ambulate in the hallways at least 4 times daily.
--- NOTE | 2018-07-12 10:24 | P.PN ---
Progress Note - Text 07/12 704am 23-year-old female status post section by Dr. Khan. Patient had a Duramorph spinal for postop pain control, she was seen this morning with a VAS of 1. Doing well
[2018-07-12 12:43] VITALS: RESP 16
[2018-07-12] MEDS: HYDROcodone/APAP 5-325MG 1 EACH TAB PO PRN (17:12)
[2018-07-13 00:06] VITALS: PULSE 77
[2018-07-13] MEDS: LACTATED RINGERS 1,000 ML IV SCH (02:24)
[2018-07-13] MEDS: IBUPROFEN 600 MG TAB PO PRN ×2 (03:41→11:56)
[2018-07-13 08:45] VITALS: BP 121/72; TEMP 98.3
--- NOTE | 2018-07-13 08:49 | P.DS ---
Providers Date of admission: 07/11/18 10:23 Expected date of discharge: 07/13/18 Attending physician: Aguila Khan Primary care physician: Stated None - Discharge Diagnosis(es) (1) Previous section Current Visit: Yes Status: Acute (2) Term Current Visit: Yes Status: Acute (3) S/P section Current Visit: Yes Status: Acute Hospital Course: The patient is a 23-year-old 2 para 1001 admitted at 39-2/7 weeks by good dating parameters perches admitted for repeat low transverse section at her request. Her has been incompetent of though she had relatively late presentation for care and is otherwise group B strep negative. On labor and delivery, she was taken the operating room where she underwent repeat low transverse section and uncomplicated fashion was delivered of a viable 8 lbs. 12 oz. baby boy with Apgars of 9 at 1 minute and 9 at 5 minutes. Her postoperative course has been entirely unremarkable with vital signs being stable and her temperature was afebrile throughout. She was deemed stable for discharge on and postoperative day #2. She is discharged home to follow-up in the office in 2 weeks for an incision check and 6 weeks routinely. Discharge instructions included calling for any significantly increased bleeding or foul-smelling lochia, significantly increased fever abdominal pain, perineal complaints, breast complaints, incisional complaints, or anything else that concerned her. She was additionally instructed to have nothing in the vagina for at least 6 weeks time to include intercourse and to abstain from any heavy lifting over the same period of time. She was lastly instructed to do no driving until off of all pain medications or 2 weeks' time, whichever came first. She understood all of her instructions and agrees to follow up as noted above. Discharge medications included a prescription for Kamrar 5/325 mg, 1-2 by mouth every 6 hours when necessary pain, #20 dispensed with no refills. She is additionally to use [id number] analgesic pain medications as needed. She has opted not to breast-feed. Nonetheless she was requested to use iron sulfate 3 and 25 mg daily for approximately a month in order to recoup her hemoglobin. Discharge hemoglobin and hematocrit were 8.4 and 27.1 respectively. Maternal blood type is A+ and rubella status is immune. Procedures: #1. Repeat low transverse section Patient Condition at Discharge: Stable Plan - Discharge Summary Discharge Rx Participant: Yes New Discharge Prescriptions: No Action Pnv,Calcium 72/Iron/Folic Acid [ Plus Tablet] 1 tablet PO DAILY Ferrous Sulfate [Feosol] 325 mg PO DAILY Discharge Medication List Pnv,Calcium 72/Iron/Folic Acid [ Plus Tablet] 1 tablet PO DAILY 01/11/18 [History] Ferrous Sulfate [Feosol] 325 mg PO DAILY 07/07/18 [History] Follow up Appointment(s)/Referral(s): Aguila Khan MD [STAFF PHYSICIAN] - 2 Weeks Discharge Disposition: HOME SELF-CARE
[2018-07-13] MEDS: HYDROcodone/APAP 5-325MG 1 EACH TAB PO PRN (08:53)
[2018-07-13] MEDS: SENNOSIDES-DOCUSATE SODIUM 1 EACH TAB PO SCH (08:53)
== END 2018-07-13 13:35 | disposition home or self-care (01) | DRG 788 ==
LOC: 4FBP 10:23
PROVIDERS: ADMIT Obstetrics & Gynecology; ATTEND Obstetrics & Gynecology
PROC: 10D00Z1 Extraction of Products of Conception, Low, Open Approach (ICD-10-PCS; principal; 2018-07-11 12:00)
DX: O34.211 Maternal care for low transverse scar from previous cesarean delivery (principal); N85.8 Other specified noninflammatory disorders of uterus; Z3A.39 39 weeks gestation of pregnancy; Z37.0 Single live birth; O69.81X0 Labor and delivery complicated by cord around neck, without compression, not applicable or unspecified; Z79.899 Other long term (current) drug therapy; Z87.442 Personal history of urinary calculi; Z91.048 Other nonmedicinal substance allergy status
CPT/HCPCS: 85025; 86850; 86900; 86901

== ENCOUNTER 2019-03-04 08:23 | Emergency (ER) | payer OTHER ==
[2019-03-04 08:29] VITALS: BP 105/48; PULSE 76; RESP 18; TEMP 98.4
[2019-03-04] MEDS ORDERED: KETOROLAC 60 MG/2 ML VIAL IM STA (08:41)
[2019-03-04] MEDS ORDERED: ACET/COD 300 MG/30 MG STARTER PACK 6 TAB BTL PO STA (08:41)
--- NOTE | 2019-03-04 08:43 | ED ---
Back Pain HPI - General Chief Complaint: Back Pain/Injury Stated Complaint: Lumbar Pain Time Seen by Provider: 03/04/19 08:31 Source: patient, RN notes reviewed Limitations: no limitations - History of Present Illness Initial Comments: This a 23-year-old female presents emergency Department with chief complaint low back pain. Patient states she went to order picker her son yesterday from the ground states that she felt a pulling sensation in her back. Patient denies any bowel, bladder incontinence or retention. Denies any saddle anesthesias no abdominal pain no dysuria no hematuria denies any chance . Patient states that she took some Tylenol with some relief she does get relief of her symptoms that she lays flat proximal her legs up. She reports no fevers or chills. Patient denies any other complaints at this time. - Related Data Home Medications Medication Instructions Recorded Confirmed Pnv,Calcium 72/Iron/Folic Acid 1 tablet PO DAILY 01/11/18 07/07/18 [ Plus Tablet] Ferrous Sulfate [Feosol] 325 mg PO DAILY 07/07/18 07/07/18 Previous Rx's Medication Instructions Recorded Cyclobenzaprine [Flexeril] 5 mg PO TID PRN #15 tablet 03/04/19 Ibuprofen [Motrin] 600 mg PO Q8HR PRN #30 tab 03/04/19 Allergies Allergy/AdvReac Type Severity Reaction Status Date / Time No Known Allergies Allergy Verified 03/04/19 08:29 Review of Systems ROS Statement: Those systems with pertinent positive or pertinent negative responses have been documented in the HPI. ROS Other: All systems not noted in ROS Statement are negative. Past Medical History Past Medical History: No Reported History Additional Past Medical History / Comment(s): states currently has nasal congestion r/t allergies, hx kidney stones History of Any Multi-Drug Resistant Organisms: None Reported Past Surgical History: Section Past Anesthesia/Blood Transfusion Reactions: No Reported Reaction Past Psychological History: Anxiety Smoking Status: Never smoker Past Alcohol Use History: Occasional Past Drug Use History: None Reported - Past Family History Mother Family Medical History: No Reported History General Exam Limitations: no limitations General appearance: alert, in no apparent distress Head exam: Present: atraumatic, normocephalic, normal inspection Eye exam: Present: normal appearance, PERRL, EOMI. Absent: scleral icterus, conjunctival injection, periorbital swelling ENT exam: Present: normal exam, mucous membranes moist Neck exam: Present: normal inspection, full ROM. Absent: tenderness, meningismus, lymphadenopathy Respiratory exam: Present: normal lung sounds bilaterally. Absent: respiratory distress, wheezes, rales, rhonchi, stridor Cardiovascular Exam: Present: regular rate, normal rhythm, normal heart sounds. Absent: systolic murmur, diastolic murmur, rubs, gallop, clicks GI/Abdominal exam: Present: soft, normal bowel sounds. Absent: distended, tenderness, guarding, rebound, rigid Extremities exam: Present: other (Lower extremity strength equal bilaterally neurovascular intact equal warmth in color) Back exam: Present: full ROM (Mild discomfort with range of motion), tenderness (Lumbar), paraspinal tenderness. Absent: vertebral tenderness Neurological exam: Present: alert, oriented X3, CN II-XII intact, reflexes normal. Absent: motor sensory deficit Skin exam: Present: warm, dry, intact, normal color. Absent: rash Course Vital Signs 03/04/19 08:26 Temperature 98.4 F Pulse Rate 76 Respiratory 18 Rate Blood Pressure 105/48 O2 Sat by Pulse 100 Oximetry Medical Decision Making - Medical Decision Making Patient presented with acute lumbar strain patient has no red flag symptoms. Patient was given Toradol emergency Department, patient was discharged with ibuprofen, Flexeril advised to apply warm compresses, ice and follow-up with her PCP. Return parameters were discussed. Patient has no red flag symptoms. Disposition Clinical Impression: Strain of lumbar region Disposition: HOME SELF-CARE Condition: Stable Instructions (If sedation given, give patient instructions): Acute Low Back Pain (ED) Additional Instructions: Please return to the Emergency Department if symptoms worsen or any other concerns. Prescriptions: Cyclobenzaprine [Flexeril] 5 mg PO TID PRN #15 tablet PRN Reason: Muscle Spasm Ibuprofen [Motrin] 600 mg PO Q8HR PRN #30 tab PRN Reason: Pain Is patient prescribed a controlled substance at d/c from ED?: No Referrals: None,Stated [Primary Care Provider] - 1-2 days Time of Disposition: 08:43
== END 2019-03-04 08:57 | disposition home or self-care (01) ==
LOC: EC 08:23
DX: S39.012A Strain of muscle, fascia and tendon of lower back, initial encounter (principal); X58.XXXA Exposure to other specified factors, initial encounter
CPT/HCPCS: 99283; 96372; J1885

== ENCOUNTER 2019-11-05 05:20 | Emergency (ER) | payer OTHER ==
[2019-11-05 05:33] VITALS: RESP 18
[2019-11-05] MEDS ORDERED: ACET/COD 300 MG/30 MG STARTER PACK 6 TAB BTL PO STA (06:16)
--- NOTE | 2019-11-05 06:17 | ED ---
ENT HPI - General Chief complaint: Dental/Oral Stated complaint: tooth ache Time Seen by Provider: 11/05/19 06:08 Source: patient, RN notes reviewed Mode of arrival: ambulatory Limitations: no limitations - History of Present Illness Initial comments: 24-year-old female presents emergency Department chief complaint of right lower dental pain. Patient states that she broke her tooth of days ago. She states that she has a known cavity there for a long period time never had it fixed. Patient states that she's had increased pain since her tooth broke. She denies any fevers or chills no significant facial swelling no difficulty opening closing her mouth. Patient hasn't previously no sore throat no headache or dizziness. - Related Data Home Medications Medication Instructions Recorded Confirmed Pnv,Calcium 72/Iron/Folic Acid 1 tablet PO DAILY 01/11/18 07/07/18 [ Plus Tablet] Ferrous Sulfate [Feosol] 325 mg PO DAILY 07/07/18 07/07/18 Previous Rx's Medication Instructions Recorded Cyclobenzaprine [Flexeril] 5 mg PO TID PRN #15 tablet 03/04/19 Ibuprofen [Motrin] 600 mg PO Q8HR PRN #30 tab 03/04/19 Ibuprofen [Motrin] 800 mg PO Q6HR #20 tab 11/05/19 Penicillin V Potassium [Pen Vee K] 500 mg PO QID #40 tablet 11/05/19 Allergies Allergy/AdvReac Type Severity Reaction Status Date / Time No Known Allergies Allergy Verified 11/05/19 05:32 Review of Systems ROS Statement: Those systems with pertinent positive or pertinent negative responses have been documented in the HPI. ROS Other: All systems not noted in ROS Statement are negative. Past Medical History Past Medical History: No Reported History Additional Past Medical History / Comment(s): states currently has nasal conges tion r/t allergies, hx kidney stones History of Any Multi-Drug Resistant Organisms: None Reported Past Surgical History: Section Past Anesthesia/Blood Transfusion Reactions: No Reported Reaction Past Psychological History: Anxiety Smoking Status: Never smoker Past Alcohol Use History: Occasional Past Drug Use History: Marijuana - Past Family History Mother Family Medical History: No Reported History General Exam Limitations: no limitations General appearance: alert, in no apparent distress Head exam: Present: atraumatic, normocephalic, normal inspection Eye exam: Present: normal appearance, PERRL, EOMI. Absent: scleral icterus, conjunctival injection, periorbital swelling ENT exam: Present: mucous membranes moist, TM's normal bilaterally. Absent: normal oropharynx (Right lower dental fracture, no drainable abscess significant erythema) Neck exam: Present: normal inspection, full ROM. Absent: tenderness, meningismus, lymphadenopathy Respiratory exam: Present: normal lung sounds bilaterally. Absent: respiratory distress, wheezes, rales, rhonchi, stridor Cardiovascular Exam: Present: regular rate, normal rhythm, normal heart sounds. Absent: systolic murmur, diastolic murmur, rubs, gallop, clicks Neurological exam: Present: alert, oriented X3, CN II-XII intact Skin exam: Present: warm, dry, intact, normal color. Absent: rash Course Vital Signs 11/05/19 05:31 Temperature 98.3 F Pulse Rate 79 Respiratory 18 Rate Blood Pressure 119/80 O2 Sat by Pulse 99 Oximetry Medical Decision Making - Medical Decision Making Patient will be started on antibiotics for complaints of dental infection she does have a known dental fracture. She is follow-up with dental clinic or local tenderness. Return parameters were discussed. Disposition Clinical Impression: Fracture of tooth, Toothache Disposition: HOME SELF-CARE Condition: Stable Instructions (If sedation given, give patient instructions): Toothache (ED) Additional Instructions: Please return to the Emergency Department if symptoms worsen or any other darren rns. Prescriptions: Ibuprofen [Motrin] 800 mg PO Q6HR #20 tab Penicillin V Potassium [Pen Vee K] 500 mg PO QID #40 tablet Is patient prescribed a controlled substance at d/c from ED?: No Referrals: None,Stated [Primary Care Provider] - 1-2 days Time of Disposition: 06:17
[2019-11-05 06:54] VITALS: BP 141/86; PULSE 57; TEMP 97.8
== END 2019-11-05 07:00 | disposition home or self-care (01) ==
LOC: EC 05:20
DX: S02.5XXA Fracture of tooth (traumatic), initial encounter for closed fracture (principal); K04.7 Periapical abscess without sinus; X58.XXXA Exposure to other specified factors, initial encounter
CPT/HCPCS: 99282

== ENCOUNTER 2020-03-24 08:40 | Emergency (ER) | payer OTHER ==
[2020-03-24 08:45] VITALS: BP 119/67; PULSE 87; RESP 18; TEMP 98.6
--- NOTE | 2020-03-24 09:15 | XR ---
EXAMINATION TYPE: XR chest 2V DATE OF EXAM: 03/24/2020 COMPARISON: 01/06/2016 TECHNIQUE: PA and lateral views submitted. HISTORY: Cough FINDINGS: The lungs are clear and there is no pneumothorax, pleural effusion, or focal pneumonia. Heart size normal. No overt failure. IMPRESSION: 1. No acute process.
--- NOTE | 2020-03-24 09:39 | ED ---
URI HPI - General Chief Complaint: Upper Respiratory Infection Stated Complaint: fever,cough Time Seen by Provider: 03/24/20 08:50 Source: patient Mode of arrival: ambulatory Limitations: no limitations - History of Present Illness Initial Comments: Patient is a healthy 24-year-old female presenting to the emergency Department with complaints of a productive cough for the last 2 weeks. She states she feels like the cough is increasing, she is producing a lot of yellow phlegm. She denies any chest pain or shortness of breath. She has had a vomiting episode after she has been coughing a lot. She states she woke up this morning and thought she had a low-grade temperature of 99. She denies any abdominal pain, no other nausea or vomiting or diarrhea. She denies history of asthma, COPD. She is a nonsmoker. She has been taking [id number] cough medicine, Tylenol without improvement. Patient has no further complaints at this time. Upon arrival to the ER, her vital signs are stable. - Related Data Home Medications Medication Instructions Recorded Confirmed Pnv,Calcium 72/Iron/Folic Acid 1 tablet PO DAILY 01/11/18 07/07/18 [ Plus Tablet] Ferrous Sulfate [Feosol] 325 mg PO DAILY 07/07/18 07/07/18 Previous Rx's Medication Instructions Recorded Cyclobenzaprine [Flexeril] 5 mg PO TID PRN #15 tablet 03/04/19 Ibuprofen [Motrin] 600 mg PO Q8HR PRN #30 tab 03/04/19 Ibuprofen [Motrin] 800 mg PO Q6HR #20 tab 11/05/19 Penicillin V Potassium [Pen Vee K] 500 mg PO QID #40 tablet 11/05/19 Azithromycin [Zithromax Z-pack (6 0 mg PO DIRECTED #1 pack 03/24/20 tabs)] Allergies Allergy/AdvReac Type Severity Reaction Status Date / Time No Known Allergies Allergy Verified 03/24/20 08:45 Review of Systems ROS Statement: Those systems with pertinent positive or pertinent negative responses have been documented in the HPI. ROS Other: All systems not noted in ROS Statement are negative. Past Medical History Past Medical History: No Reported History Additional Past Medical History / Comment(s): hx kidney stones History of Any Multi-Drug Resistant Organisms: None Reported Past Surgical History: Section Past Anesthesia/Blood Transfusion Reactions: No Reported Reaction Past Psychological History: Anxiety Smoking Status: Never smoker Past Alcohol Use History: Occasional Past Drug Use History: None Reported - Past Family History Mother Family Medical History: No Reported History General Exam - General Exam Comments Initial Comments: GENERAL: Patient is well-developed and well-nourished. Patient is nontoxic and in no a cute distress. HEAD: Atraumatic, normocephalic. EYES: Pupils equal round and reactive to light, extraocular movements intact, sclera anicteric, conjunctiva are normal. Eyelids were unremarkable. ENT: TMs normal, nares patent, oropharynx clear without exudates. Moist mucous membranes. NECK: Normal range of motion, supple without lymphadenopathy or JVD. LUNGS: Unlabored respirations. Breath sounds clear to auscultation bilaterally and equal. No wheezes rales or rhonchi. HEART: Regular rate and rhythm without murmurs, rubs or gallops. ABDOMEN: Soft, nontender, normoactive bowel sounds. No guarding, no rebound. No masses appreciated. : Deferred MUSCULOSKELETAL: Normal extremities with adequate strength and normal range of motion, no pitting or edema. No clubbing or cyanosis. NEUROLOGICAL: Patient is alert and oriented x 3. Motor and sensory are also intact. Cranial nerves II through XII grossly intact. Symmetrical smile. Normal speech, normal gait. PSYCH: Normal mood, normal affect. SKIN: Warm, Dry, normal turgor, no rashes or lesions noted. Limitations: no limitations Course Vital Signs 03/24/20 08:42 Temperature 98.6 F Pulse Rate 87 Respiratory 18 Rate Blood Pressure 119/67 O2 Sat by Pulse 100 Oximetry Medical Decision Making - Medical Decision Making Patient is a 24-year-old female here for a productive cough 2 weeks. No fevers, no other complaints. No history of asthma. Her vital signs are stable. Chest x-ray shows no acute process. I discussed the patient's symptoms are most likely upper respiratory infection. We will cover her with a Z-Jax since her cough has been ongoing for 2 weeks. I did recommend Mucinex. Patient is stable for discharge. Patient is in agreement with this plan of care. Return parameters were discussed with the patient and they verbalized understanding. Case discussed with Dr. Quiroz. Disposition Clinical Impression: Upper respiratory tract infection Disposition: HOME SELF-CARE Condition: Stable Instructions (If sedation given, give patient instructions): Upper Respiratory Infection (ED) Additional Instructions: Please return to the Emergency Department if symptoms worsen or any other concerns. Take antibiotic as prescribed. Recommend Mucinex. Drink plenty of fluids. Follow up with your PCP. Prescriptions: Azithromycin [Zithromax Z-pack (6 tabs)] 0 mg PO DIRECTED #1 pack Is patient prescribed a controlled substance at d/c from ED?: No Referrals: None,Stated [Primary Care Provider] - 1-2 days
== END 2020-03-24 09:54 | disposition home or self-care (01) ==
LOC: EC 08:40
DX: J06.9 Acute upper respiratory infection, unspecified (principal); Z79.899 Other long term (current) drug therapy; Z87.442 Personal history of urinary calculi
CPT/HCPCS: 71046; 99283

== ENCOUNTER 2020-06-23 21:34 | Emergency (ER) | payer OTHER ==
[2020-06-23] MEDS ORDERED: AMOXIC-POT CLAV 875-125MG 1 EACH TAB PO STA (22:04)
--- NOTE | 2020-06-23 22:41 | XR ---
EXAMINATION TYPE: XR hand complete RT DATE OF EXAM: 06/23/2020 COMPARISON: NONE HISTORY: Pain and swelling TECHNIQUE: 3 views I see no fracture nor dislocation. Joint spaces are normal. There are no erosions. IMPRESSION: Negative right hand exam. No fracture.
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
[2020-06-23 23:54] VITALS: BP 138/84; PULSE 88; RESP 14; TEMP 98.2
== END 2020-06-23 23:53 | disposition home or self-care (01) ==
LOC: EC 21:34
DX: S60.371A Other superficial bite of right thumb, initial encounter (principal); S60.470A Other superficial bite of right index finger, initial encounter; S50.872A Other superficial bite of left forearm, initial encounter; S50.871A Other superficial bite of right forearm, initial encounter; W50.3XXA Accidental bite by another person, initial encounter
CPT/HCPCS: 99283

== ENCOUNTER 2022-07-30 14:16 | Emergency (ER) | payer OTHER ==
[2022-07-30 15:22] VITALS: RESP 18
[2022-07-30] MEDS ORDERED: SODIUM CHLORIDE 0.9% 1,000 ML IV STA (15:37)
[2022-07-30] MEDS ORDERED: ONDANSETRON 4 MG/2 ML VIAL IVP STA (15:37)
--- NOTE | 2022-07-30 15:42 | ED ---
General Adult HPI - General Chief complaint: Abdominal Pain Stated complaint: Abd Pain Time Seen by Provider: 07/30/22 15:25 Source: patient, RN notes reviewed Mode of arrival: ambulatory Limitations: no limitations - History of Present Illness Initial comments: 27-year-old female presents emergency Department with chief complaint "gallbladder issues." Patient states that she has had worsening right upper quadrant pain for the past 2 days. She admits to nausea with vomiting and diarrhea. She reports 3-4 episodes of vomiting today. She reports a history of gallstones. She states that she has had this pain before when she eats certain foods but states she has been avoiding her known triggers and is still having the pain. She reports no daily medications and no medication allergies. - Related Data Home Medications Medication Instructions Recorded Confirmed Vit No.180/Iron/Folic 1 tablet PO DAILY 01/11/18 07/07/18 [ Plus Tablet] Ferrous Sulfate [Feosol] 325 mg PO DAILY 07/07/18 07/07/18 Previous Rx's Medication Instructions Recorded Cyclobenzaprine [Flexeril] 5 mg PO TID PRN #15 tablet 03/04/19 Ibuprofen [Motrin] 600 mg PO Q8HR PRN #30 tab 03/04/19 Ibuprofen [Motrin] 800 mg PO Q6HR #20 tab 11/05/19 Penicillin V Potassium [Pen Vee K] 500 mg PO QID #40 tablet 11/05/19 Azithromycin [Zithromax Z-pack (6 0 mg PO DIRECTED #1 pack 03/24/20 tabs)] Amoxicillin/Potassium Clav 1 tab PO Q12HR #20 tab 06/23/20 [Augmentin 875-125 Tablet] Allergies Allergy/AdvReac Type Severity Reaction Status Date / Time No Known Allergies Allergy Verified 07/30/22 15:21 Review of Systems ROS Statement: Those systems with pertinent positive or pertinent negative responses have been documented in the HPI. ROS Other: All systems not noted in ROS Statement are negative. Past Medical History Past Medical History: No Reported History Additional Past Medical History / Comment(s): hx kidney stones, gallbladder stones History of Any Multi-Drug Resistant Organisms: None Reported Past Surgical History: Section Past Anesthesia/Blood Transfusion Reactions: No Reported Reaction Past Psychological History: Anxiety Smoking Status: Never smoker Past Alcohol Use History: Occasional Past Drug Use History: Marijuana - Past Family History Mother Family Medical History: No Reported History General Exam Limitations: no limitations General appearance: alert, in no apparent distress Head exam: Present: atraumatic, normocephalic, normal inspection Eye exam: Present: normal appearance, PERRL, EOMI. Absent: scleral icterus, conjunctival injection, periorbital swelling ENT exam: Present: normal exam, mucous membranes moist Neck exam: Present: normal inspection, full ROM. Absent: tenderness, meningismus, lymphadenopathy Respiratory exam: Present: normal lung sounds bilaterally. Absent: respiratory distress, wheezes, rales, rhonchi, stridor Cardiovascular Exam: Present: regular rate, normal rhythm, normal heart sounds. Absent: systolic murmur, diastolic murmur, rubs, gallop, clicks GI/Abdominal exam: Present: soft, tenderness (RUQ), normal bowel sounds. Absent: distended, guarding, rebound, rigid Extremities exam: Present: normal inspection, full ROM, normal capillary refill. Absent: tenderness, pedal edema, joint swelling, calf tenderness Back exam: Present: normal inspection Neurological exam: Present: alert, oriented X3 Psychiatric exam: Present: normal affect, normal mood Skin exam: Present: warm, dry, intact, normal color. Absent: rash Course Vital Signs 07/30/22 07/30/22 15:19 18:59 Temperature 98.1 F 98.2 F Pulse Rate 76 74 Respiratory 18 18 Rate Blood Pressure 126/77 124/72 O2 Sat by Pulse 99 99 Oximetry Medical Decision Making - Medical Decision Making Was pt. sent in by a medical professional or institution (, PA, [employer], urgent care, hospital, or fdc...) When possible be specific @ -No Did you speak to anyone other than the patient for history (EMS, parent, family, police, friend...)? What history was obtained from this source @ -No Did you review nursing and triage notes (agree or disagree)? Why? @ -I reviewed and agree with nursing and triage notes Were old charts reviewed (outside hosp., previous admission, EMS record, old EKG, old radiological studies, urgent care reports/EKG's, fdc records)? Report findings @ -No old charts were reviewed Differential Diagnosis (chest pain, altered mental status, abdominal pain women, abdominal pain men, vaginal bleeding, weakness, fever, dyspnea, syncope, headache, dizziness, GI bleed, back pain, seizure, CVA, palpatations, mental health, musculoskeletal)? @ -Differential Abdominal Pain Women: Appendicitis, Cholecystitis, diverticulosis, ischemic bowel, pancreatitis, hepatitis, UTI, gastroenteritis, AAA, incarcerated hernia, bowel obstruction, constipation, inflammatory bowel, hepatitis, peptic ulcer disease, splenic infarction, perforated viscus, vulvitis, ovarian torsion, PID, kidney stone, placenta abruption, this is not meant to be an all-inclusive list EKG interpreted by me (3pts min.). @ -None X-rays interpreted by me (1pt min.). @ -None done CT interpreted by me (1pt min.). @ -None done U/S interpreted by me (1pt. min.). @ -Ultrasound gallbladder showed dilated common bile duct 1.0 cm, 0.3 cm gallbladder wall What testing was considered but not performed or refused? (CT, X-rays, U/S, labs)? Why? @ -None What meds were considered but not given or refused? Why? @ -None Did you discuss the management of the patient with other professionals (professionals i.e. , PA, [employer], lab, RT, psych nurse, criminal justice social worker, bed control specialist, teacher, information management officer, director case management)? Give summary @ -Yes case was discussed with Dr. Young GI at [facility], states patient likely needs MRCP and if positive will need ERCP and Dr. Toledo in the EC who is accepting of the transfer Was smoking cessation discussed for >3mins.? @ -No Was critical care preformed (if so, how long)? @ -No Were there social determinants of health that impacted care today? How? (Homelessness, low income, unemployed, alcoholism, drug addiction, transportation, low edu. Level, literacy, decrease access to med. care, prison, rehab)? @ -No Was there de-escalation of care discussed even if they declined (Discuss DNR or withdrawal of care, Hospice)? DNR status @ -No What co-morbidities impacted this encounter? (DM, HTN, Smoking, COPD, CAD, Cancer, CVA, ARF, Chemo, Hep., AIDS, mental health diagnosis, sleep apnea, morbid obesity)? @ -None Was patient admitted / discharged? Hospital course, mention meds given and route, prescriptions, significant lab abnormalities, going to OR and other pertinent info. @ -Transferred. Patient presented to the emergency department for chief complaint of right upper quadrant pain associated with vomiting and diarrhea. Patient has a history of cholelithiasis. CBC showed WBC 20.7, hemoglobin 11.2, neutrophil 17.6; CMP showed sodium 139, potassium 4.2, creatinine 0.82, bilirubin 0.7, AST 129, AST 64, alk phos 148; ultrasound gallbladder showed dilated common bile duct of 1.0 cm, gallbladder wall 0.3 cm. Case was discussed with Dr. Young, GI at [facility] who states that the patient likely needs MRCP, positive the patient will need ERCP. Case was also discussed with Dr. Toledo in the EC at [facility] who is accepting of the transfer. We have no GI specialist and patient shall be transferred to [facility]. Patient given dose of IV Zosyn. Patient stable at time of transfer. Case discussed with Dr. Tatum. Undiagnosed new problem with uncertain prognosis? @ -No Drug Therapy requiring intensive monitoring for toxicity (Heparin, Nitro, Insulin, Cardizem)? @ -No Were any procedures done? @ -No Diagnosis/symptom? @ -Dilated common bile duct, possible choledocholithiasis Acute, or Chronic, or Acute on Chronic? @ -Acute Uncomplicated (without systemic symptoms) or Complicated (systemic symptoms)? @ -default Side effects of treatment? @ -No Exacerbation, Progression, or Severe Exacerbation? @ -No Poses a threat to life or bodily function? How? (Chest pain, USA, PA, pneumonia, PE, COPD, DKA, ARF, appy, cholecystitis, CVA, Diverticulitis, Homicidal, Suicidal, threat to staff... and all critical care pts) @ -Yes cholecystitis - Lab Data Result diagrams: 07/30/22 15:43 07/30/22 15:43 Lab Results 07/30/22 07/30/22 07/30/22 Range/Units 15:43 15:43 15:43 WBC 20.7 H (3.8-10.6) k/uL RBC 4.88 (3.80-5.40) m/uL Hgb 11.2 L (11.4-16.0) gm/dL Hct 36.3 (34.0-46.0) % MCV 74.3 L (80.0-100.0) fL MCH 23.0 L (25.0-35.0) pg MCHC 31.0 (31.0-37.0) g/dL RDW 17.4 H (11.5-15.5) % Plt Count 388 (150-450) k/uL MPV 7.3 Neutrophils % 85 % Lymphocytes % 11 % Monocytes % 3 % Eosinophils % 1 % Basophils % 0 % Neutrophils # 17.6 H (1.3-7.7) k/uL Lymphocytes # 2.3 (1.0-4.8) k/uL Monocytes # 0.5 (0-1.0) k/uL Eosinophils # 0.2 (0-0.7) k/uL Basophils # 0.0 (0-0.2) k/uL Hypochromasia Moderate Anisocytosis Slight Microcytosis Moderate Sodium (137-145) mmol/L Potassium (3.5-5.1) mmol/L Chloride (98-107) mmol/L Carbon Dioxide (22-30) mmol/L Anion Gap mmol/L BUN (7-17) mg/dL Creatinine (0.52-1.04) mg/dL Est GFR (CKD-EPI)AfAm (>60 ml/min/1.73 sqM) Est GFR (CKD-EPI)NonAf (>60 ml/min/1.73 sqM) Glucose (74-99) mg/dL Calcium (8.4-10.2) mg/dL Total Bilirubin (0.2-1.3) mg/dL AST (14-36) U/L ALT (4-34) U/L Alkaline Phosphatase (38-126) U/L Total Protein (6.3-8.2) g/dL Albumin (3.5-5.0) g/dL Amylase (30-110) U/L Lipase (23-300) U/L Urine Color Yellow Urine Appearance Cloudy H (Clear) Urine pH 6.0 (5.0-8.0) Ur Specific [place] 1.018 (1.001-1.035) Urine Protein Negative (Negative) Urine Glucose (UA) Negative (Negative) Urine Ketones Negative (Negative) Urine Blood Negative (Negative) Urine Nitrite Negative (Negative) Urine Bilirubin Negative (Negative) Urine Urobilinogen 2.0 (<2.0) mg/dL Ur Leukocyte Esterase Moderate H (Negative) Urine RBC 6 H (0-5) /hpf Urine WBC 16 H (0-5) /hpf Ur Squamous Epith Cells 4 (0-4) /hpf Uric Acid Crystals Few H (None) /hpf Urine Bacteria Rare H (None) /hpf Hyaline Casts 1 (0-2) /lpf Urine Mucus Rare H (None) /hpf Urine HCG, Qual Not Detected (Not Detectd) 07/30/22 Range/Units 15:43 WBC (3.8-10.6) k/uL RBC (3.80-5.40) m/uL Hgb (11.4-16.0) gm/dL Hct (34.0-46.0) % MCV (80.0-100.0) fL MCH (25.0-35.0) pg MCHC (31.0-37.0) g/dL RDW (11.5-15.5) % Plt Count (150-450) k/uL MPV Neutrophils % % Lymphocytes % % Monocytes % % Eosinophils % % Basophils % % Neutrophils # (1.3-7.7) k/uL Lymphocytes # (1.0-4.8) k/uL Monocytes # (0-1.0) k/uL Eosinophils # (0-0.7) k/uL Basophils # (0-0.2) k/uL Hypochromasia Anisocytosis Microcytosis Sodium 139 (137-145) mmol/L Potassium 4.3 (3.5-5.1) mmol/L Chloride 106 (98-107) mmol/L Carbon Dioxide 24 (22-30) mmol/L Anion Gap 9 mmol/L BUN 11 (7-17) mg/dL Creatinine 0.82 (0.52-1.04) mg/dL Est GFR (CKD-EPI)AfAm >90 (>60 ml/min/1.73 sqM) Est GFR (CKD-EPI)NonAf >90 (>60 ml/min/1.73 sqM) Glucose 101 H (74-99) mg/dL Calcium 9.7 (8.4-10.2) mg/dL Total Bilirubin 0.7 (0.2-1.3) mg/dL AST 129 H (14-36) U/L ALT 64 H (4-34) U/L Alkaline Phosphatase 148 H (38-126) U/L Total Protein 7.8 (6.3-8.2) g/dL Albumin 4.2 (3.5-5.0) g/dL Amylase 62 (30-110) U/L Lipase 227 (23-300) U/L Urine Color Urine Appearance (Clear) Urine pH (5.0-8.0) Ur Specific [place] (1.001-1.035) Urine Protein (Negative) Urine Glucose (UA) (Negative) Urine Ketones (Negative) Urine Blood (Negative) Urine Nitrite (Negative) Urine Bilirubin (Negative) Urine Urobilinogen (<2.0) mg/dL Ur Leukocyte Esterase (Negative) Urine RBC (0-5) /hpf Urine WBC (0-5) /hpf Ur Squamous Epith Cells (0-4) /hpf Uric Acid Crystals (None) /hpf Urine Bacteria (None) /hpf Hyaline Casts (0-2) /lpf Urine Mucus (None) /hpf Urine HCG, Qual (Not Detectd) Disposition Clinical Impression: Common bile duct dilation, Cholecystitis Disposition: OTHER INSTITUTION NOT DEFINED Condition: Stable Is patient prescribed a controlled substance at d/c from ED?: No Referrals: None,Stated [Primary Care Provider] - 1-2 days - Out of Hospital Transfer - Req. Specs Out of Hospital Transfer - Requested Specifics: Other Emergency Center ([facility])
[2022-07-30] MEDS ORDERED: KETOROLAC 15 MG/ML 1 ML VIAL IVP STA (15:45)
[2022-07-30 15:56] LABS: Anisocytosis Slight; Basophils % (A) 0 %; Eosinophils # (A) 0.2 k/uL (0-0.7); Eosinophils % (A) 1 %; HCT 36.3 % (34.0-46.0); HGB 11.2 gm/dL (11.4-16.0); Hypochromasia Moderate; Lymphocytes # (A) 2.3 k/uL (1.0-4.8); Lymphocytes % (A) 11 %; MCV 74.3 fL (80.0-100.0); Mean Platelet Volume 7.3; Microcytosis Moderate; Monocytes # (A) 0.5 k/uL (0-1.0); Monocytes % (A) 3 %; Neutrophils # (A) 17.6 k/uL (1.3-7.7); Neutrophils % (A) 85 %; Platelet Count 388 k/uL (150-450); RBC 4.88 m/uL (3.80-5.40); RDW 17.4 % (11.5-15.5); WBC 20.7 k/uL (3.8-10.6)
[2022-07-30 16:04] LABS: ALT 64 U/L (4-34); AST 129 U/L (14-36); African American GFR (CKD) >90 (>60 ml/min/1.73 sqM); Albumin 4.2 g/dL (3.5-5.0); Alkaline Phosphatase 148 U/L (38-126); Amylase 62 U/L (30-110); Anion Gap 9 mmol/L; Blood Urea Nitrogen 11 mg/dL (7-17); Calcium 9.7 mg/dL (8.4-10.2); Carbon Dioxide 24 mmol/L (22-30); Chloride 106 mmol/L (98-107); Glucose 101 mg/dL (74-99); Lipase 227 U/L (23-300); Non-African American GFR(CKD) >90 (>60 ml/min/1.73 sqM); Potassium 4.3 mmol/L (3.5-5.1); Sodium 139 mmol/L (137-145); Total Bilirubin 0.7 mg/dL (0.2-1.3); Total Protein 7.8 g/dL (6.3-8.2)
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
[2022-07-30 17:10] LABS: Appearance,Urine Cloudy (Clear); Bacteria,Urine Rare /hpf; Bilirubin,Urine Negative (Negative); Blood,Urine Negative (Negative); Color,Urine Yellow; Glucose,Urine (UA) Negative (Negative); Hyaline Casts,Urine 1 /lpf (0-2); Ketones,Urine Negative (Negative); Leukocyte Esterase,Urine Moderate (Negative); Mucus,Urine Rare /hpf; Nitrite,Urine Negative (Negative); Protein,Urine Negative (Negative); RBC,Urine 6 /hpf (0-5); Specific Gravity,Urine 1.018 (1.001-1.035); Squamous Epithelial Cell,Urine 4 /hpf (0-4); Uric Acid Crystals,Urine Few /hpf; WBC,Urine 16 /hpf (0-5)
[2022-07-30] MEDS ORDERED: PIPERACILLIN-TAZOBACTAM 3.375 GM in SODIUM CHLORIDE 0.9% 100 ML IVPB STA (18:32)
[2022-07-30 18:59] VITALS: BP 124/72; PULSE 74; TEMP 98.2
== END 2022-07-30 19:18 | disposition other institution (70) ==
LOC: EC 14:16
DX: K80.20 Calculus of gallbladder without cholecystitis without obstruction (principal); K83.8 Other specified diseases of biliary tract; Q61.5 Medullary cystic kidney; F41.9 Anxiety disorder, unspecified; F12.90 Cannabis use, unspecified, uncomplicated; Z79.899 Other long term (current) drug therapy
CPT/HCPCS: 36415; 80053; 82150; 83690; 85025; 81001; 81025; 87040; 87086; 87077; 87186; 76705; 99285; 96365; 96375 ×2; 96361; J2543; J2405; J1885

== ENCOUNTER 2022-10-20 10:57 | Emergency (ER) | payer OTHER ==
[2022-10-20 11:20] VITALS: BP 114/73; PULSE 91; RESP 18; TEMP 98.5
--- NOTE | 2022-10-20 11:21 | ED ---
ENT HPI - General Chief complaint: ENT Stated complaint: ENT Time Seen by Provider: 10/20/22 11:20 Source: patient, RN notes reviewed Mode of arrival: ambulatory Limitations: no limitations - History of Present Illness Initial comments: 27-year-old female presents emergency Department with chief complaint of right- sided dental pain, right ear pain. Patient states she has her was in 2 tab, and out cracked a right side. She states it's painful, swollen. She did see an oral surgeon who recommended them to be removed she states a follow-up after. Denies any difficulty swallowing no other complaints. - Related Data Home Medications Medication Instructions Recorded Confirmed Vit No.180/Iron/Folic 1 tablet PO DAILY 01/11/18 07/07/18 [ Plus Tablet] Ferrous Sulfate [Feosol] 325 mg PO DAILY 07/07/18 07/07/18 Previous Rx's Medication Instructions Recorded Cyclobenzaprine [Flexeril] 5 mg PO TID PRN #15 tablet 03/04/19 Ibuprofen [Motrin] 600 mg PO Q8HR PRN #30 tab 03/04/19 Ibuprofen [Motrin] 800 mg PO Q6HR #20 tab 11/05/19 Penicillin V Potassium [Pen Vee K] 500 mg PO QID #40 tablet 11/05/19 Azithromycin [Zithromax Z-pack (6 0 mg PO DIRECTED #1 pack 03/24/20 tabs)] Amoxicillin/Potassium Clav 1 tab PO Q12HR #20 tab 06/23/20 [Augmentin 875-125 Tablet] Amoxic-Pot Clav 875-125Mg 1 tab PO Q12HR #20 tab 10/20/22 [Augmentin 875-125] Allergies Allergy/AdvReac Type Severity Reaction Status Date / Time No Known Allergies Allergy Verified 10/20/22 11:18 Review of Systems ROS Statement: Those systems with pertinent positive or pertinent negative responses have been documented in the HPI. ROS Other: All systems not noted in ROS Statement are negative. Past Medical History Past Medical History: No Reported History Additional Past Medical History / Comment(s): hx kidney stones, gallbladder stones History of Any Multi-Drug Resistant Organisms: None Reported Past Surgical History: Section Past Anesthesia/Blood Transfusion Reactions: No Reported Reaction Past Psychological History: Anxiety Smoking Status: Never smoker Past Alcohol Use History: Occasional Past Drug Use History: Marijuana - Past Family History Mother Family Medical History: No Reported History General Exam Limitations: no limitations General appearance: alert, in no apparent distress Head exam: Present: atraumatic, normocephalic, normal inspection Eye exam: Present: normal appearance, PERRL, EOMI. Absent: scleral icterus, conjunctival injection, periorbital swelling ENT exam: Present: mucous membranes moist. Absent: normal oropharynx (Impacted molar, dental fracture noted no drainable abscess) Neck exam: Present: normal inspection, full ROM. Absent: tenderness, meningismus, lymphadenopathy Respiratory exam: Present: normal lung sounds bilaterally. Absent: respiratory distress, wheezes, rales, rhonchi, stridor Cardiovascular Exam: Present: regular rate, normal rhythm, normal heart sounds. Absent: systolic murmur, diastolic murmur, rubs, gallop, clicks Course Vital Signs 10/20/22 11:16 Temperature 98.5 F Pulse Rate 91 Respiratory 18 Rate Blood Pressure 114/73 O2 Sat by Pulse 99 Oximetry Medical Decision Making - Medical Decision Making Was pt. sent in by a medical professional or institution (, PA, [employer], urgent care, hospital, or snf...) When possible be specific @ -No Did you speak to anyone other than the patient for history (EMS, parent, family, police, friend...)? What history was obtained from this source @ -No Did you review nursing and triage notes (agree or disagree)? Why? @ -I reviewed and agree with nursing and triage notes Were old charts reviewed (outside hosp., previous admission, EMS record, old EKG, old radiological studies, urgent care reports/EKG's, snf records)? Report findings @ -No old charts were reviewed Differential Diagnosis (chest pain, altered mental status, abdominal pain women, abdominal pain men, vaginal bleeding, weakness, fever, dyspnea, syncope, headache, dizziness, GI bleed, back pain, seizure, CVA, palpatations, mental health, musculoskeletal)? @ -Dental infection, impacted molar, otalgia EKG interpreted by me (3pts min.). @ -None X-rays interpreted by me (1pt min.). @ -None done CT interpreted by me (1pt min.). @ -None done U/S interpreted by me (1pt. min.). @ -None done What testing was considered but not performed or refused? (CT, X-rays, U/S, labs)? Why? @ -None What meds were considered but not given or refused? Why? @ -None Did you discuss the management of the patient with other professionals (professionals i.e. , PA, [employer], lab, RT, psych nurse, marriage and family social worker, nurse epidemiologist, teacher, botanical technical officer, case management rn)? Give summary @ -No Was smoking cessation discussed for >3mins.? @ -No Was critical care preformed (if so, how long)? @ -No Were there social determinants of health that impacted care today? How? (Homelessness, low income, unemployed, alcoholism, drug addiction, transportation, low edu. Level, literacy, decrease access to med. care, halfway, rehab)? @ -No Was there de-escalation of care discussed even if they declined (Discuss DNR or withdrawal of care, Hospice)? DNR status @ -No What co-morbidities impacted this encounter? (DM, HTN, Smoking, COPD, CAD, Cancer, CVA, ARF, Chemo, Hep., AIDS, mental health diagnosis, sleep apnea, morbid obesity)? @ -None Was patient admitted / discharged? Hospital course, mention meds given and route, prescriptions, significant lab abnormalities, going to OR and other pertinent info. @ -Discharge patient states has dental infection from impacted molar we placed on Augmentin advised up with oral surgery for dental extraction] Undiagnosed new problem with uncertain prognosis? @ -No Drug Therapy requiring intensive monitoring for toxicity (Heparin, Nitro, Insulin, Cardizem)? @ -No Were any procedures done? @ -No Diagnosis/symptom? @ -Dental infection, dental pain, otalgia Acute, or Chronic, or Acute on Chronic? @ -Acute Uncomplicated (without systemic symptoms) or Complicated (systemic symptoms)? @ -Uncomplicated Side effects of treatment? @ -No Exacerbation, Progression, or Severe Exacerbation? @ -No Poses a threat to life or bodily function? How? (Chest pain, [place], [place], pneumonia, PE, COPD, DKA, ARF, appy, cholecystitis, CVA, Diverticulitis, Homicidal, Suicidal, threat to staff... and all critical care pts) @ -No Disposition Clinical Impression: Pain, dental, Otalgia Disposition: HOME SELF-CARE Condition: Stable Instructions (If sedation given, give patient instructions): Earache (ED) Additional Instructions: Please return to the Emergency Department if symptoms worsen or any other concerns. Prescriptions: Amoxic-Pot Clav 875-125Mg [Augmentin 875-125] 1 tab PO Q12HR #20 tab Is patient prescribed a controlled substance at d/c from ED?: No Referrals: None,Stated [Primary Care Provider] - 1-2 days Time of Disposition: 11:21
== END 2022-10-20 11:54 | disposition home or self-care (01) ==
LOC: EC 10:57
DX: K04.7 Periapical abscess without sinus (principal); F12.90 Cannabis use, unspecified, uncomplicated; Z86.59 Personal history of other mental and behavioral disorders
CPT/HCPCS: 99282

== ENCOUNTER 2023-03-08 09:59 | Emergency (ER) | payer OTHER ==
[2023-03-08] MEDS ORDERED: PROPARACAINE 0.5% OPHTH DROPS 15 ML BTL RIGHT EYE STA (10:08)
[2023-03-08] MEDS ORDERED: FLUORESCEIN STRIPS 1 MG STRIP RIGHT EYE ONE (10:08)
[2023-03-08] MEDS ORDERED: TOBRAMYCIN 0.3% OPHTH DROPS 5 ML BTL LEFT EYE STA (10:19)
--- NOTE | 2023-03-08 10:21 | ED ---
Eye Problem HPI - General Chief complaint: Eye Problems Stated complaint: Eye irritation Time Seen by Provider: 03/08/23 10:08 Source: patient, RN notes reviewed Mode of arrival: ambulatory Limitations: no limitations - History of Present Illness Initial comments: 27-year-old female presents emergency department complaint of left eye irritation. Patient states that started last few days. Patient states there is crusting, tearing from the eye no visual disturbance. Patient denies any trauma. Patient states that she does not wear any contacts or glasses. - Related Data Home Medications Medication Instructions Recorded Confirmed Vit No.180/Iron/Folic 1 tablet PO DAILY 01/11/18 07/07/18 [ Plus Tablet] Ferrous Sulfate [Feosol] 325 mg PO DAILY 07/07/18 07/07/18 Previous Rx's Medication Instructions Recorded Cyclobenzaprine [Flexeril] 5 mg PO TID PRN #15 tablet 03/04/19 Ibuprofen [Motrin] 600 mg PO Q8HR PRN #30 tab 03/04/19 Ibuprofen [Motrin] 800 mg PO Q6HR #20 tab 11/05/19 Penicillin V Potassium [Pen Vee K] 500 mg PO QID #40 tablet 11/05/19 Azithromycin [Zithromax Z-pack (6 0 mg PO DIRECTED #1 pack 03/24/20 tabs)] Amoxicillin/Potassium Clav 1 tab PO Q12HR #20 tab 06/23/20 [Augmentin 875-125 Tablet] Amoxic-Pot Clav 875-125Mg 1 tab PO Q12HR #20 tab 10/20/22 [Augmentin 875-125] Allergies Allergy/AdvReac Type Severity Reaction Status Date / Time No Known Allergies Allergy Verified 03/08/23 10:07 Review of Systems ROS Statement: Those systems with pertinent positive or pertinent negative responses have been documented in the HPI. ROS Other: All systems not noted in ROS Statement are negative. Past Medical History Past Medical History: No Reported History Additional Past Medical History / Comment(s): hx kidney stones, gallbladder stones History of Any Multi-Drug Resistant Organisms: None Reported Past Surgical History: Section Past Anesthesia/Blood Transfusion Reactions: No Reported Reaction Past Psychological History: Anxiety Smoking Status: Never smoker Past Alcohol Use History: Occasional Past Drug Use History: Marijuana - Past Family History Mother Family Medical History: No Reported History General Exam Limitations: no limitations General appearance: alert, in no apparent distress Head exam: Present: atraumatic, normocephalic, normal inspection Eye exam: Present: PERRL, EOMI, conjunctival injection (Left), other (Patient had relief with proparacaine drops, no fluorescein uptake with rodriges lamp). Absent: normal appearance, scleral icterus, periorbital swelling ENT exam: Present: normal exam, normal oropharynx, mucous membranes moist Neck exam: Present: normal inspection, full ROM. Absent: tenderness, meningismus, lymphadenopathy Respiratory exam: Present: normal lung sounds bilaterally. Absent: respiratory distress, wheezes, rales, rhonchi, stridor Cardiovascular Exam: Present: regular rate, normal rhythm, normal heart sounds. Absent: systolic murmur, diastolic murmur, rubs, gallop, clicks GI/Abdominal exam: Present: soft, normal bowel sounds. Absent: distended, tenderness, guarding, rebound, rigid Neurological exam: Present: alert Skin exam: Present: warm, dry, intact, normal color. Absent: rash Course Vital Signs 03/08/23 03/08/23 10:05 10:31 Temperature 98.2 F 98.1 F Pulse Rate 86 80 Respiratory 16 18 Rate Blood Pressure 115/66 118/70 O2 Sat by Pulse 97 99 Oximetry Medical Decision Making - Medical Decision Making Was pt. sent in by a medical professional or institution ([facility], [facility], urgent care, hospital, or [facility]...) When possible be specific @ -No Did you speak to anyone other than the patient for history (EMS, parent, family, police, friend...)? What history was obtained from this source @ -No Did you review nursing and triage notes (agree or disagree)? Why? @ -I reviewed and agree with nursing and triage notes Were old charts reviewed (outside hosp., previous admission, EMS record, old EKG, old radiological studies, urgent care reports/EKG's, [facility] records)? Report findings @ -No old charts were reviewed Differential Diagnosis (chest pain, altered mental status, abdominal pain women, abdominal pain men, vaginal bleeding, weakness, fever, dyspnea, syncope, headache, dizziness, GI bleed, back pain, seizure, CVA, palpatations, mental health, musculoskeletal)? @ -[Conjunctivitis, corneal foreign body, corneal abrasion EKG interpreted by me (3pts min.). @ -None X-rays interpreted by me (1pt min.). @ -[None done CT interpreted by me (1pt min.). @ -None done U/S interpreted by me (1pt. min.). @ -None done What testing was considered but not performed or refused? (CT, X-rays, U/S, labs)? Why? @ -None What meds were considered but not given or refused? Why? @ -None Did you discuss the management of the patient with other professionals (professionals i.e. Dr., PA, [employer], lab, RT, psych nurse, social service coordinator, blow moulding machine operator, teacher, customs and border protection officer, wrapper caser)? Give summary @ -No Was smoking cessation discussed for >3mins.? @ -No Was critical care preformed (if so, how long)? @ -No Were there social determinants of health that impacted care today? How? (Homelessness, low income, unemployed, alcoholism, drug addiction, transportation, low edu. Level, literacy, decrease access to med. care, group home, rehab)? @ -No Was there de-escalation of care discussed even if they declined (Discuss DNR or withdrawal of care, Hospice)? DNR status @ -No What co-morbidities impacted this encounter? (DM, HTN, Smoking, COPD, CAD, Cancer, CVA, ARF, Chemo, Hep., AIDS, mental health diagnosis, sleep apnea, morbid obesity)? @ -None Was patient admitted / discharged? Hospital course, mention meds given and route, prescriptions, significant lab abnormalities, going to OR and other pertinent info. @ -Discharge patient has left eye conjunctivitis no foreign body noted. No visual disturbance. Patient discharged in Tobrex eyedrops Undiagnosed new problem with uncertain prognosis? @ -No Drug Therapy requiring intensive monitoring for toxicity (Heparin, Nitro, Insulin, Cardizem)? @ -No Were any procedures done? @ -No Diagnosis/symptom? @ -[Conjunctivitis left Acute, or Chronic, or Acute on Chronic? @ -Acute Uncomplicated (without systemic symptoms) or Complicated (systemic symptoms)? @ -[Uncomplicated Side effects of treatment? @ -[No Exacerbation, Progression, or Severe Exacerbation? @ -No Poses a threat to life or bodily function? How? (Chest pain, [place], [place], pneumonia, PE, COPD, DKA, ARF, appy, cholecystitis, CVA, Diverticulitis, Homicidal, Suicidal, threat to staff... and all critical care pts) @ -No Disposition Clinical Impression: Bacterial conjunctivitis Disposition: HOME SELF-CARE Condition: Stable Instructions (If sedation given, give patient instructions): Conjunctivitis (ED) Additional Instructions: Please return to the Emergency Department if symptoms worsen or any other concerns. Use eyedrops 1 drop every 4 hours for 7 days Is patient prescribed a controlled substance at d/c from ED?: No Referrals: Nancy Ellis MD [STAFF PHYSICIAN] - 1-2 days Time of Disposition: 10:21
[2023-03-08 10:37] VITALS: BP 118/70; PULSE 80; RESP 18; TEMP 98.1
== END 2023-03-08 10:33 | disposition home or self-care (01) ==
LOC: EC 09:59
DX: H10.89 Other conjunctivitis (principal); F12.90 Cannabis use, unspecified, uncomplicated; Z86.59 Personal history of other mental and behavioral disorders
CPT/HCPCS: 99283

== ENCOUNTER 2023-11-01 12:18 | Emergency (ER) | payer OTHER ==
--- NOTE | 2023-11-01 12:44 | ED ---
General Adult HPI - General Chief complaint: Urogenital Stated complaint: Urogenital Time Seen by Provider: 11/01/23 12:31 Source: patient, RN notes reviewed Mode of arrival: ambulatory Limitations: no limitations - History of Present Illness Initial comments: 28-year-old female presents emergency department chief complaint of dysuria and increase in urinary frequency and urgency over the past approximately week. Patient was also endorsing mild lower abdominal and suprapubic pain. Patient states that she had a mild fever yesterday. She denies nausea, vomiting, flank or back pain. Denies hematuria, vaginal bleeding, vaginal discharge or odor. P atient states that she has had a few urinary tract infection in the past and this feels similar. History of cholecystectomy. - Related Data Home Medications Medication Instructions Recorded Confirmed Vit No.180/Iron/Folic 1 tablet PO DAILY 01/11/18 07/07/18 [ Plus Tablet] Ferrous Sulfate [Feosol] 325 mg PO DAILY 07/07/18 07/07/18 Previous Rx's Medication Instructions Recorded Cyclobenzaprine [Flexeril] 5 mg PO TID PRN #15 tablet 03/04/19 Ibuprofen [Motrin] 600 mg PO Q8HR PRN #30 tab 03/04/19 Ibuprofen [Motrin] 800 mg PO Q6HR #20 tab 11/05/19 Penicillin V Potassium [Pen Vee K] 500 mg PO QID #40 tablet 11/05/19 Azithromycin [Zithromax Z-pack (6 0 mg PO DIRECTED #1 pack 03/24/20 tabs)] Amoxicillin/Potassium Clav 1 tab PO Q12HR #20 tab 06/23/20 [Augmentin 875-125 Tablet] Amoxic-Pot Clav 875-125Mg 1 tab PO Q12HR #20 tab 10/20/22 [Augmentin 875-125] Sulfamethox-Tmp 800-160Mg [Bactrim 1 each PO Q12HR #20 tab 11/01/23 Ds] Allergies Allergy/AdvReac Type Severity Reaction Status Date / Time No Known Allergies Allergy Verified 11/01/23 12:41 Review of Systems ROS Statement: Those systems with pertinent positive or pertinent negative responses have been documented in the HPI. ROS Other: All systems not noted in ROS Statement are negative. Past Medical History Past Medical History: No Reported History Additional Past Medical History / Comment(s): hx kidney stones, gallbladder stones History of Any Multi-Drug Resistant Organisms: None Reported Past Surgical History: Section, Cholecystectomy Past Anesthesia/Blood Transfusion Reactions: No Reported Reaction Past Psychological History: Anxiety Smoking Status: Vaper Past Alcohol Use History: Daily Past Drug Use History: Marijuana - Past Family History Mother Family Medical History: No Reported History General Exam Limitations: no limitations General appearance: alert, in no apparent distress ENT exam: Present: normal exam, mucous membranes moist Neck exam: Present: normal inspection. Absent: tenderness, meningismus, lymphadenopathy Respiratory exam: Present: normal lung sounds bilaterally. Absent: respiratory distress, wheezes, rales, rhonchi, stridor Cardiovascular Exam: Present: regular rate, normal rhythm, normal heart sounds. Absent: systolic murmur, diastolic murmur, rubs, gallop, clicks GI/Abdominal exam: Present: soft, tenderness (suprapubic ), normal bowel sounds. Absent: distended, guarding, rebound, rigid Extremities exam: Present: normal inspection, full ROM, normal capillary refill. Absent: tenderness, pedal edema, joint swelling, calf tenderness Back exam: Present: normal inspection Skin exam: Present: warm, dry, intact, normal color. Absent: rash Course Vital Signs 11/01/23 12:39 Temperature 98.5 F Pulse Rate 94 Respiratory 20 Rate Blood Pressure 121/85 O2 Sat by Pulse 99 Oximetry Medical Decision Making - Medical Decision Making Was pt. sent in by a medical professional or institution ([facility], [facility], urgent care, hospital, or senior living...) When possible be specific @ -No Did you speak to anyone other than the patient for history (EMS, parent, family, police, friend...)? What history was obtained from this source @ -No Did you review nursing and triage notes (agree or disagree)? Why? @ -I reviewed and agree with nursing and triage notes Were old charts reviewed (outside hosp., previous admission, EMS record, old EKG, old radiological studies, urgent care reports/EKG's, senior living records)? Report findings @ -No old charts were reviewed Differential Diagnosis (chest pain, altered mental status, abdominal pain women, abdominal pain men, vaginal bleeding, weakness, fever, dyspnea, syncope, headache, dizziness, GI bleed, back pain, seizure, CVA, palpatations, mental health, musculoskeletal)? @ -Differential Abdominal Pain Women: Appendicitis, Cholecystitis, diverticulosis, ischemic bowel, pancreatitis, hepatitis, UTI, gastroenteritis, AAA, incarcerated hernia, bowel obstruction, constipation, inflammatory bowel, hepatitis, peptic ulcer disease, splenic infarction, perforated viscus, vulvitis, ovarian torsion, PID, kidney stone, placenta abruption, this is not meant to be an all-inclusive list EKG interpreted by me (3pts min.). @ -None X-rays interpreted by me (1pt min.). @ -None done CT interpreted by me (1pt min.). @ -None done U/S interpreted by me (1pt. min.). @ -None done What testing was considered but not performed or refused? (CT, X-rays, U/S, labs)? Why? @ -CT imaging of the abdomen was considered but deferred at this time. Patient 's laboratory results are remarkable for urinary tract infection there is minimal clinical concern for further intra-abdominal process at this time. Patient did agree with deferring CT imaging of the abdomen. What meds were considered but not given or refused? Why? @ -None Did you discuss the management of the patient with other professionals (professionals i.e. , PA, [employer] [employer], lab, RT, psych nurse, sr. social media & mobile manager, student loan counselor, teacher, special skills officer, nurse case management)? Give summary @ -No Was smoking cessation discussed for >3mins.? @ -No Was critical care preformed (if so, how long)? @ -No Were there social determinants of health that impacted care today? How? (Homelessness, low income, unemployed, alcoholism, drug addiction, transportation, low edu. Level, literacy, decrease access to med. care, nursing home, rehab)? @ -No Was there de-escalation of care discussed even if they declined (Discuss DNR or withdrawal of care, Hospice)? DNR status @ -No What co-morbidities impacted this encounter? (DM, HTN, Smoking, COPD, CAD, Cancer, CVA, ARF, Chemo, Hep., AIDS, mental health diagnosis, sleep apnea, morbi d obesity)? @ -None Was patient admitted / discharged? Hospital course, mention meds given and route , prescriptions, significant lab abnormalities, going to OR and other pertinent info. @ -discharged. 28-year-old female with urinary symptoms. Patient's vitals are stable shows no signs of fever or tachycardia. Patient has mild suprapubic tenderness to palpation with no signs of rebound tenderness or rigidity. Patient was offered Tylenol but states that she took some this morning and is deferring medications at this time.CBC reveals leukocytosis of 15, neutrophilia of 9.7, urinalysis remarkable for infection including large leukocyte esterase, white blood cells and many bacteria, hCG is negative, CMP within normal limits, amylase and lipase nonelevated. Patient will be treated for urinary tract infection with Bactrim and recommended to follow-up with her primary care provider in 1 week for urine recheck. All questions answered at bedside strict return parameters as the patient she is verbalized understanding. Discussed with Dr. Gracia. Undiagnosed new problem with uncertain prognosis? @ -No Drug Therapy requiring intensive monitoring for toxicity (Heparin, Nitro, Insulin, Cardizem)? @ -No Were any procedures done? @ -No Diagnosis/symptom? @ -Urinary tract infection Acute, or Chronic, or Acute on Chronic? @ -acute Uncomplicated (without systemic symptoms) or Complicated (systemic symptoms)? @ -uncomplicated Side effects of treatment? @ -No Exacerbation, Progression, or Severe Exacerbation? @ -No Poses a threat to life or bodily function? How? (Chest pain, [place], [place], pneumonia, PE, COPD, DKA, ARF, appy, cholecystitis, CVA, Diverticulitis, Homicidal, Suicidal, threat to staff... and all critical care pts) @ -No - Lab Data Result diagrams: 11/01/23 13:17 11/01/23 13:17 Lab Results 11/01/23 11/01/23 11/01/23 Range/Units 12:42 12:42 13:17 WBC 15.0 H (3.8-10.6) k/uL RBC 5.12 (3.80-5.40) m/uL Hgb 11.6 (11.4-16.0) gm/dL Hct 38.7 (34.0-46.0) % MCV 75.5 L (80.0-100.0) fL MCH 22.7 L (25.0-35.0) pg MCHC 30.1 L (31.0-37.0) g/dL RDW 16.3 H (11.5-15.5) % Plt Count 451 H (150-450) k/uL MPV 6.6 Neutrophils % 65 % Lymphocytes % 28 % Monocytes % 4 % Eosinophils % 1 % Basophils % 1 % Neutrophils # 9.7 H (1.3-7.7) k/uL Lymphocytes # 4.2 (1.0-4.8) k/uL Monocytes # 0.6 (0-1.0) k/uL Eosinophils # 0.2 (0-0.7) k/uL Basophils # 0.1 (0-0.2) k/uL Hypochromasia Marked Anisocytosis Slight Microcytosis Slight Sodium (137-145) mmol/L Potassium (3.5-5.1) mmol/L Chloride (98-107) mmol/L Carbon Dioxide (22-30) mmol/L Anion Gap mmol/L BUN (7-17) mg/dL Creatinine (0.52-1.04) mg/dL Est GFR (CKD-EPI)AfAm (>60 ml/min/1.73 sqM) Est GFR (CKD-EPI)NonAf (>60 ml/min/1.73 sqM) Glucose (74-99) mg/dL Calcium (8.4-10.2) mg/dL Total Bilirubin (0.2-1.3) mg/dL AST (14-36) U/L ALT (4-34) U/L Alkaline Phosphatase (38-126) U/L Total Protein (6.3-8.2) g/dL Albumin (3.5-5.0) g/dL Amylase (30-110) U/L Lipase (23-300) U/L Urine Color Light Yellow Urine Appearance Cloudy H (Clear) Urine pH 6.0 (5.0-8.0) Ur Specific [place] 1.023 (1.001-1.035) Urine Protein Trace H (Negative) Urine Glucose (UA) Negative (Negative) Urine Ketones Negative (Negative) Urine Blood Negative (Negative) Urine Nitrite Negative (Negative) Urine Bilirubin Negative (Negative) Urine Urobilinogen <2.0 (<2.0) mg/dL Ur Leukocyte Esterase Large H (Negative) Urine WBC 118 H (0-5) /hpf Ur Squamous Epith Cells 33 H (0-4) /hpf Calcium Oxalate Crystal Many H (None) /hpf Urine Bacteria Many H (None) /hpf Urine Mucus Occasional H (None) /hpf Urine HCG, Qual Not Detected (Not Detectd) 11/01/23 Range/Units 13:17 WBC (3.8-10.6) k/uL RBC (3.80-5.40) m/uL Hgb (11.4-16.0) gm/dL Hct (34.0-46.0) % MCV (80.0-100.0) fL MCH (25.0-35.0) pg MCHC (31.0-37.0) g/dL RDW (11.5-15.5) % Plt Count (150-450) k/uL MPV Neutrophils % % Lymphocytes % % Monocytes % % Eosinophils % % Basophils % % Neutrophils # (1.3-7.7) k/uL Lymphocytes # (1.0-4.8) k/uL Monocytes # (0-1.0) k/uL Eosinophils # (0-0.7) k/uL Basophils # (0-0.2) k/uL Hypochromasia Anisocytosis Microcytosis Sodium 139 (137-145) mmol/L Potassium 4.0 (3.5-5.1) mmol/L Chloride 105 (98-107) mmol/L Carbon Dioxide 23 (22-30) mmol/L Anion Gap 11 mmol/L BUN 14 (7-17) mg/dL Creatinine 0.93 (0.52-1.04) mg/dL Est GFR (CKD-EPI)AfAm >90 (>60 ml/min/1.73 sqM) Est GFR (CKD-EPI)NonAf 85 (>60 ml/min/1.73 sqM) Glucose 99 (74-99) mg/dL Calcium 10.3 H (8.4-10.2) mg/dL Total Bilirubin 0.5 (0.2-1.3) mg/dL AST 27 (14-36) U/L ALT 24 (4-34) U/L Alkaline Phosphatase 121 (38-126) U/L Total Protein 8.1 (6.3-8.2) g/dL Albumin 4.4 (3.5-5.0) g/dL Amylase 57 (30-110) U/L Lipase 277 (23-300) U/L Urine Color Urine Appearance (Clear) Urine pH (5.0-8.0) Ur Specific [place] (1.001-1.035) Urine Protein (Negative) Urine Glucose (UA) (Negative) Urine Ketones (Negative) Urine Blood (Negative) Urine Nitrite (Negative) Urine Bilirubin (Negative) Urine Urobilinogen (<2.0) mg/dL Ur Leukocyte Esterase (Negative) Urine WBC (0-5) /hpf Ur Squamous Epith Cells (0-4) /hpf Calcium Oxalate Crystal (None) /hpf Urine Bacteria (None) /hpf Urine Mucus (None) /hpf Urine HCG, Qual (Not Detectd) Disposition Clinical Impression: Urinary tract infection Disposition: HOME SELF-CARE Condition: Good Instructions (If sedation given, give patient instructions): Urinary Tract Infection in Women (ED) Additional Instructions: Return to the emergency department for any new or worsening symptoms. Recommend that you complete full course of antibiotics as prescribed. Follow-up with your primary care provider within the next week for further evaluation and urine recheck. Prescriptions: Sulfamethox-Tmp 800-160Mg [Bactrim Ds] 1 each PO Q12HR #20 tab Is patient prescribed a controlled substance at d/c from ED?: No Referrals: None,Stated [Primary Care Provider] - 1-2 days Time of Disposition: 14:06
[2023-11-01 13:04] LABS: Appearance,Urine Cloudy (Clear); Bacteria,Urine Many /hpf; Bilirubin,Urine Negative (Negative); Blood,Urine Negative (Negative); Calcium Oxalate Crystals,Urine Many /hpf; Color,Urine Light Yellow; Glucose,Urine (UA) Negative (Negative); Ketones,Urine Negative (Negative); Leukocyte Esterase,Urine Large (Negative); Mucus,Urine Occasional /hpf; Nitrite,Urine Negative (Negative); Protein,Urine Trace (Negative); Specific Gravity,Urine 1.023 (1.001-1.035); Squamous Epithelial Cell,Urine 33 /hpf (0-4); Urobilinogen,Urine <2.0 mg/dL (<2.0); WBC,Urine 118 /hpf (0-5)
[2023-11-01 13:27] LABS: Anisocytosis Slight; Basophils # (A) 0.1 k/uL (0-0.2); Basophils % (A) 1 %; Eosinophils # (A) 0.2 k/uL (0-0.7); Eosinophils % (A) 1 %; HCT 38.7 % (34.0-46.0); HGB 11.6 gm/dL (11.4-16.0); Hypochromasia Marked; Lymphocytes # (A) 4.2 k/uL (1.0-4.8); Lymphocytes % (A) 28 %; MCH 22.7 pg (25.0-35.0); MCHC 30.1 g/dL (31.0-37.0); MCV 75.5 fL (80.0-100.0); Mean Platelet Volume 6.6; Microcytosis Slight; Monocytes # (A) 0.6 k/uL (0-1.0); Monocytes % (A) 4 %; Neutrophils # (A) 9.7 k/uL (1.3-7.7); Neutrophils % (A) 65 %; Platelet Count 451 k/uL (150-450); RBC 5.12 m/uL (3.80-5.40); RDW 16.3 % (11.5-15.5)
[2023-11-01 13:46] LABS: ALT 24 U/L (4-34); AST 27 U/L (14-36); African American GFR (CKD) >90 (>60 ml/min/1.73 sqM); Albumin 4.4 g/dL (3.5-5.0); Alkaline Phosphatase 121 U/L (38-126); Amylase 57 U/L (30-110); Anion Gap 11 mmol/L; Blood Urea Nitrogen 14 mg/dL (7-17); Calcium 10.3 mg/dL (8.4-10.2); Carbon Dioxide 23 mmol/L (22-30); Chloride 105 mmol/L (98-107); Glucose 99 mg/dL (74-99); Lipase 277 U/L (23-300); Non-African American GFR(CKD) 85 (>60 ml/min/1.73 sqM); Sodium 139 mmol/L (137-145); Total Bilirubin 0.5 mg/dL (0.2-1.3); Total Protein 8.1 g/dL (6.3-8.2)
[2023-11-01 14:17] VITALS: BP 119/81; PULSE 84; RESP 18; TEMP 97.9
== END 2023-11-01 14:17 | disposition home or self-care (01) ==
LOC: EC 12:18
DX: N39.0 Urinary tract infection, site not specified (principal)
CPT/HCPCS: 36415; 80053; 81001; 81025; 82150; 83690; 85025; 87077; 87086; 87186; 99283

== ENCOUNTER 2024-05-25 08:30 | Emergency (ER) | payer OTHER ==
--- NOTE | 2024-05-25 09:01 | ED ---
ENT HPI - General Chief complaint: ENT Stated complaint: sore throat,congestion Time Seen by Provider: 05/25/24 08:46 Source: patient, RN notes reviewed Mode of arrival: ambulatory Limitations: no limitations - History of Present Illness Initial comments: This is a 29-year-old female with no reported medical history is presenting to the emergency department with throat, congestion, and headaches past 2 days. Patient states that 2 weeks ago she was experiencing more severe URI symptoms however this resolved. Symptoms have now returned but 2 days ago. She denies nausea, vomiting, productive cough, fevers, chills, difficulty breathing. - Related Data Home Medications Medication Instructions Recorded Confirmed Vit No.180/Iron/Folic 1 tablet PO DAILY 01/11/18 07/07/18 [ Plus Tablet] Ferrous Sulfate [Feosol] 325 mg PO DAILY 07/07/18 07/07/18 Previous Rx's Medication Instructions Recorded Cyclobenzaprine [Flexeril] 5 mg PO TID PRN #15 tablet 03/04/19 Ibuprofen [Motrin] 600 mg PO Q8HR PRN #30 tab 03/04/19 Ibuprofen [Motrin] 800 mg PO Q6HR #20 tab 11/05/19 Penicillin V Potassium [Pen Vee K] 500 mg PO QID #40 tablet 11/05/19 Azithromycin [Zithromax Z-pack (6 0 mg PO DIRECTED #1 pack 03/24/20 tabs)] Amoxicillin/Potassium Clav 1 tab PO Q12HR #20 tab 06/23/20 [Augmentin 875-125 Tablet] Amoxic-Pot Clav 875-125Mg 1 tab PO Q12HR #20 tab 10/20/22 [Augmentin 875-125] Sulfamethox-Tmp 800-160Mg [Bactrim 1 each PO Q12HR #20 tab 11/01/23 Ds] Amoxicillin 875 mg PO Q12HR #20 tablet 05/25/24 Allergies Allergy/AdvReac Type Severity Reaction Status Date / Time No Known Allergies Allergy Verified 11/01/23 12:41 Review of Systems ROS Statement: Those systems with pertinent positive or pertinent negative responses have been documented in the HPI. ROS Other: All systems not noted in ROS Statement are negative. Past Medical History Past Medical History: No Reported History Additional Past Medical History / Comment(s): hx kidney stones, gallbladder stones History of Any Multi-Drug Resistant Organisms: None Reported Past Surgical History: Section, Cholecystectomy Past Anesthesia/Blood Transfusion Reactions: No Reported Reaction Past Psychological History: Anxiety Smoking Status: Vaper Past Alcohol Use History: Daily Past Drug Use History: Marijuana - Past Family History Mother Family Medical History: No Reported History General Exam Limitations: no limitations General appearance: alert, in no apparent distress Expanded Throat exam: tonsillar erythema, tonsillomegaly, tonsillar exudate Neck exam: Present: normal inspection. Absent: tenderness, meningismus, lymphadenopathy Respiratory exam: Present: normal lung sounds bilaterally. Absent: respiratory distress, wheezes, rales, rhonchi, stridor Cardiovascular Exam: Present: regular rate, normal rhythm, normal heart sounds. Absent: systolic murmur, diastolic murmur, rubs, gallop, clicks GI/Abdominal exam: Present: soft, normal bowel sounds. Absent: distended, tenderness, guarding, rebound, rigid Extremities exam: Present: normal inspection, full ROM, normal capillary refill. Absent: tenderness, pedal edema, joint swelling, calf tenderness Back exam: Present: normal inspection Course Vital Signs 05/25/24 05/25/24 08:31 10:03 Temperature 99.5 F 98.4 F Pulse Rate 118 H 105 H Respiratory 20 18 Rate Blood Pressure 140/80 135/76 O2 Sat by Pulse 99 99 Oximetry Medical Decision Making - Medical Decision Making Was pt. sent in by a medical professional or institution ([facility], [employer], urgent care, hospital, or [facility]...) When possible be specific @ -No Did you speak to anyone other than the patient for history (EMS, parent, family, police, friend...)? What history was obtained from this source @ -No Did you review nursing and triage notes (agree or disagree)? Why? @ -I reviewed and agree with nursing and triage notes Were old charts reviewed (outside hosp., previous admission, EMS record, old EKG, old radiological studies, urgent care reports/EKG's, [facility] records)? Report findings @ -No old charts were reviewed Differential Diagnosis (chest pain, altered mental status, abdominal pain women, abdominal pain men, vaginal bleeding, weakness, fever, dyspnea, syncope, headache, dizziness, GI bleed, back pain, seizure, CVA, palpatations, mental health, musculoskeletal)? @ -COVID 19, RSV, influenza, pneumonia, acute bronchitis, URI, this list is not all inclusive EKG interpreted by me (3pts min.). @ -none X-rays interpreted by me (1pt min.). @ -None done CT interpreted by me (1pt min.). @ -None done U/S interpreted by me (1pt. min.). @ -None done What testing was considered but not performed or refused? (CT, X-rays, U/S, labs)? Why? @ -None What meds were considered but not given or refused? Why? @ -None Did you discuss the management of the patient with other professionals (professionals i.e. , PA, [employer]NA[employer], lab, RT, psych nurse, social sciences lecturer, tar distillation supervisor, teacher, radiological defense officer, case worker)? Give summary @ -No Was smoking cessation discussed for >3mins.? @ -No Was critical care preformed (if so, how long)? @ -No Were there social determinants of health that impacted care today? How? (Homelessness, low income, unemployed, alcoholism, drug addiction, transportation, low edu. Level, literacy, decrease access to med. care, longterm, rehab)? @ -No Was there de-escalation of care discussed even if they declined (Discuss DNR or withdrawal of care, Hospice)? DNR status @ -No What co-morbidities impacted this encounter? (DM, HTN, Smoking, COPD, CAD, Cancer, CVA, ARF, Chemo, Hep., AIDS, mental health diagnosis, sleep apnea, morbid obesity)? @ -None Was patient admitted / discharged? Hospital course, mention meds given and route, prescriptions, significant lab abnormalities, going to OR and other pertinent info. @ -Discharge. 29-year-old female presents emergency department with sore throat. There is noted tonsillar exudates most notable of the right tonsil. Patient is tachycardic on arrival with a heart rate of 118 and mild low-grade fever with a temperature of 99.5. She is provided with dose of Decadron and Tylenol. Patient tested positive for group A strep. She is provided with antibiotics of amoxicillin. Supportive treatment discussed at bedside as well. Case discussed with Dr. Ramirez Undiagnosed new problem with uncertain prognosis? @ -No Drug Therapy requiring intensive monitoring for toxicity (Heparin, Nitro, Insulin, Cardizem)? @ -No Were any procedures done? @ -No Diagnosis/symptom? @ -strep pharyngitis Acute, or Chronic, or Acute on Chronic? @ -acute Uncomplicated (without systemic symptoms) or Complicated (systemic symptoms)? @ -uncomplicated Side effects of treatment? @ -No Exacerbation, Progression, or Severe Exacerbation? @ -No Poses a threat to life or bodily function? How? (Chest pain, [place], [place], pneumonia, PE, COPD, DKA, ARF, appy, cholecystitis, CVA, Diverticulitis, Homicidal, Samantha cidal, threat to staff... and all critical care pts) @ -No - Lab Data Lab Results 05/25/24 05/25/24 Range/Units 09:02 09:02 Influenza Type A (PCR) Not Detected (Not Detectd) Influenza Type B (PCR) Not Detected (Not Detectd) RSV (PCR) Not Detected (Not Detectd) SARS-CoV-2 (PCR) Not Detected (Not Detectd) Group A Strep (PCR) DETECTED A (Not Detectd) Disposition Clinical Impression: Strep pharyngitis Disposition: HOME SELF-CARE Condition: Good Instructions (If sedation given, give patient instructions): Strep Throat (ED) Additional Instructions: Please return to the Emergency Department if symptoms worsen or any other concerns. Complete full course of antibiotics as prescribed. Discard your toothbrush. Continue Tylenol Motrin as needed for symptomatic relief in addition to increasing fluids/hydration. Prescriptions: Amoxicillin 875 mg PO Q12HR #20 tablet Is patient prescribed a controlled substance at d/c from ED?: No Referrals: None,Stated [Primary Care Provider] - 1-2 days Time of Disposition: 09:46
[2024-05-25] MEDS: DEXAMETHASONE SOD PHOSPHATE 4 MG/ML 1 ML VIAL IM STA (09:07)
[2024-05-25] MEDS: ACETAMINOPHEN TAB 500 MG TAB PO STA (09:08)
[2024-05-25 09:49] LABS: Influenza A Not Detected (Not Detectd); Influenza B Not Detected (Not Detectd); RSV Not Detected (Not Detectd)
[2024-05-25 10:04] VITALS: BP 135/76; PULSE 105; RESP 18; TEMP 98.4
== END 2024-05-25 10:04 | disposition home or self-care (01) ==
LOC: EC 08:30
DX: J02.0 Streptococcal pharyngitis (principal); F17.290 Nicotine dependence, other tobacco product, uncomplicated
CPT/HCPCS: 87651; 87636; 99283; 96372; J1100

== ENCOUNTER 2024-06-28 18:34 | Emergency (ER) | payer OTHER ==
[2024-06-28 18:37] VITALS: TEMP 99.7
[2024-06-28 20:02] LABS: Appearance,Urine Cloudy (Clear); Bacteria,Urine Few /hpf; Bilirubin,Urine Negative (Negative); Blood,Urine Negative (Negative); Color,Urine Light Yellow; Glucose,Urine (UA) Negative (Negative); Ketones,Urine Negative (Negative); Leukocyte Esterase,Urine Moderate (Negative); Mucus,Urine Rare /hpf; Nitrite,Urine Negative (Negative); PH, Urine 6.5 (5.0-8.0); Protein,Urine Negative (Negative); RBC,Urine 1 /hpf (0-5); Specific Gravity,Urine 1.018 (1.001-1.035); Squamous Epithelial Cell,Urine 14 /hpf (0-4); Urobilinogen,Urine <2.0 mg/dL (<2.0); WBC,Urine 17 /hpf (0-5)
[2024-06-28 20:21] LABS: Influenza A Not Detected (Not Detectd); Influenza B Not Detected (Not Detectd); RSV Not Detected (Not Detectd)
--- NOTE | 2024-06-28 20:38 | ED ---
General Adult HPI - General Chief complaint: Nausea/Vomiting/Diarrhea Stated complaint: N/V/D Time Seen by Provider: 06/28/24 19:08 Source: patient, RN notes reviewed, old records reviewed Mode of arrival: ambulatory Limitations: no limitations - History of Present Illness Initial comments: Patient is a 29-year-old female presents emergency department complaining of nausea and vomiting diarrhea. Started last night. Had a throughout the day today but is feeling proved. One of her children also has similar complaints. She endorses crampy abdominal discomfort but no other obvious symptoms. Denies chest pain, fevers, chills, cough. Denies any urinary complaints. States she is not . Presents for further evaluation at this time. - Related Data Home Medications Medication Instructions Recorded Confirmed Vit No.180/Iron/Folic 1 tablet PO DAILY 01/11/18 07/07/18 [ Plus Tablet] Ferrous Sulfate [Feosol] 325 mg PO DAILY 07/07/18 07/07/18 Previous Rx's Medication Instructions Recorded Cyclobenzaprine [Flexeril] 5 mg PO TID PRN #15 tablet 03/04/19 Ibuprofen [Motrin] 600 mg PO Q8HR PRN #30 tab 03/04/19 Ibuprofen [Motrin] 800 mg PO Q6HR #20 tab 11/05/19 Penicillin V Potassium [Pen Vee K] 500 mg PO QID #40 tablet 11/05/19 Azithromycin [Zithromax Z-pack (6 0 mg PO DIRECTED #1 pack 03/24/20 tabs)] Amoxicillin/Potassium Clav 1 tab PO Q12HR #20 tab 06/23/20 [Augmentin 875-125 Tablet] Amoxic-Pot Clav 875-125Mg 1 tab PO Q12HR #20 tab 10/20/22 [Augmentin 875-125] Sulfamethox-Tmp 800-160Mg [Bactrim 1 each PO Q12HR #20 tab 11/01/23 Ds] Amoxicillin 875 mg PO Q12HR #20 tablet 05/25/24 Dicyclomine [Bentyl] 10 mg PO TID PRN 5 Days #15 capsule 06/28/24 Allergies Allergy/AdvReac Type Severity Reaction Status Date / Time No Known Allergies Allergy Verified 06/28/24 18:37 Review of Systems ROS Statement: Those systems with pertinent positive or pertinent negative responses have been documented in the HPI. Review of Systems: CONST: Denies fever EYES: Denies blurry vision ENT: Denies nasal congestion C/V: Denies Chest pain RESP: Denies shortness of breath GI: Denies abdominal pain : Denies dysuria SKIN: Denies rash. MSK: Denies joint pain. NEURO: Denies headache ROS Other: All systems not noted in ROS Statement are negative. Past Medical History Past Medical History: No Reported History Additional Past Medical History / Comment(s): hx kidney stones, gallbladder stones History of Any Multi-Drug Resistant Organisms: None Reported Past Surgical History: Section, Cholecystectomy Past Anesthesia/Blood Transfusion Reactions: No Reported Reaction Past Psychological History: Anxiety Smoking Status: Vaper Past Alcohol Use History: Daily Past Drug Use History: Marijuana - Past Family History Mother Family Medical History: No Reported History General Exam - General Exam Comments Initial Comments: General: Appears in no acute distress. HEAD: Normal with no signs of head trauma. EYES: EOMI ENT: Hearing grossly intact, normal oropharynx. RESPIRATORY: Clear breath sounds bilaterally. No wheezes, rales, or rhonchi. C/V: Regular rate and rhythm. S1 and S2 auscultated, no edema, peripheral pulses 2+ and intact throughout ABD: Abd is soft, nontender, nondistended no guarding or rebound tenderness. No peritoneal signs. EXT: Normal range of motion, no obvious deformity SKIN: No rashes or lesions observed on exposed skin. NEURO: Alert and oriented x 4 Limitations: no limitations Course Vital Signs 06/28/24 18:35 Temperature 99.7 F H Pulse Rate 104 H Respiratory 18 Rate Blood Pressure 105/74 O2 Sat by Pulse 98 Oximetry Medical Decision Making - Medical Decision Making Was pt. sent in by a medical professional or institution (, PA, DEVELOPMENTAL BEHAVIORAL PHYSICIAN, urgent care, hospital, or fpc...) When possible be specific @ -No Did you speak to anyone other than the patient for history (EMS, parent, family, police, friend...)? What history was obtained from this source @ -No Did you review nursing and triage notes (agree or disagree)? Why? @ -I reviewed and agree with nursing and triage notes Were old charts reviewed (outside hosp., previous admission, EMS record, old EKG, old radiological studies, urgent care reports/EKG's, fpc records)? Report findings @ -No old charts were reviewed Differential Diagnosis (chest pain, altered mental status, abdominal pain women, abdominal pain men, vaginal bleeding, weakness, fever, dyspnea, syncope, headache, dizziness, GI bleed, back pain, seizure, CVA, palpatations, mental health, musculoskeletal)? @ -Viral syndrome, dehydration, UTI, this list is not all inclusive. EKG interpreted by me (3pts min.). @ -None done X-rays interpreted by me (1pt min.). @ -None done CT interpreted by me (1pt min.). @ -None done U/S interpreted by me (1pt. min.). @ -None done What testing was considered but not performed or refused? (CT, X-rays, U/S, labs)? Why? @ -None What meds were considered but not given or refused? Why? @ -None Did you discuss the management of the patient with other professionals (professionals i.e. , PA, DEVELOPMENTAL BEHAVIORAL PHYSICIAN, lab, RT, psych nurse, rn social services, enterprise applications manager, teacher, aoc director combat operations officer, case manager specialist)? Give summary @ -No Was smoking cessation discussed for >3mins.? @ -No Was critical care preformed (if so, how long)? @ -No Were there social determinants of health that impacted care today? How? (Homelessness, low income, unemployed, alcoholism, drug addiction, transportation, low edu. Level, literacy, decrease access to med. care, alf, rehab)? @ -No Was there de-escalation of care discussed even if they declined (Discuss DNR or withdrawal of care, Hospice)? DNR status @ -No What co-morbidities impacted this encounter? (DM, HTN, Smoking, COPD, CAD, Cancer, CVA, ARF, Chemo, Hep., AIDS, mental health diagnosis, sleep apnea, morbid obesity)? @ -None Was patient admitted / discharged? Hospital course, mention meds given and route, prescriptions, significant lab abnormalities, going to OR and other pertinent info. @ -Based on patient's presentation physical exam, presents with nausea vomiting diarrhea. Feeling improved at this time. I did offer blood work as well as urinalysis and viral swabs and she was in agreement this plan. Vital signs within acceptable limits. Patient changed her mind about the blood work and only one of the urinalysis, U preg, viral swabs. These all returned and were all negative for any obvious acute process. Patient is not . I updated the patient. She will be discharged home with a work note. Patient given a dose of Bentyl as well as a starter pack of Zofran. She was in agreement this plan. No ketones in urine. I will provide the patient with a prescription for Bentyl. I instructed the patient to follow up with their PCP in the next 1-3 days.. I explained that the patient should return to the emergency department if they experience any worsening symptoms. Strict return precautions were discussed with the patient. The patient expressed understanding of these instructions. I answered all questions that the patient had. The patient was discharged home in good condition with their prescriptions and follow up information. Undiagnosed new problem with uncertain prognosis? @ -No Drug Therapy requiring intensive monitoring for toxicity (Heparin, Nitro, Insulin, Cardizem)? @ -No Were any procedures done? @ -No Diagnosis/symptom? @ -Nausea, vomiting, diarrhea Acute, or Chronic, or Acute on Chronic? @ -Acute Uncomplicated (without systemic symptoms) or Complicated (systemic symptoms)? @ -Uncomplicated Side effects of treatment? @ -No Exacerbation, Progression, or Severe Exacerbation? @ -No Poses a threat to life or bodily function? How? (Chest pain, [place], [place], pneumonia, PE, COPD, DKA, ARF, appy, cholecystitis, CVA, Diverticulitis, Homicidal, Suicidal, threat to staff... and all critical care pts) @ -Unlikely at this time - Lab Data Lab Results 06/28/24 06/28/24 06/28/24 Range/Units 19:30 19:30 19:30 Urine Color Light Yellow Urine Appearance Cloudy H (Clear) Urine pH 6.5 (5.0-8.0) Ur Specific [place] 1.018 (1.001-1.035) Urine Protein Negative (Negative) Urine Glucose (UA) Negative (Negative) Urine Ketones Negative (Negative) Urine Blood Negative (Negative) Urine Nitrite Negative (Negative) Urine Bilirubin Negative (Negative) Urine Urobilinogen <2.0 (<2.0) mg/dL Ur Leukocyte Esterase Moderate H (Negative) Urine RBC 1 (0-5) /hpf Urine WBC 17 H (0-5) /hpf Ur Squamous Epith Cells 14 H (0-4) /hpf Urine Bacteria Few H (None) /hpf Urine Mucus Rare H (None) /hpf Urine HCG, Qual Not Detected (Not Detectd) Influenza Type A (PCR) Not Detected (Not Detectd) Influenza Type B (PCR) Not Detected (Not Detectd) RSV (PCR) Not Detected (Not Detectd) SARS-CoV-2 (PCR) Not Detected (Not Detectd) Disposition Clinical Impression: Diarrhea, Nausea and vomiting Disposition: HOME SELF-CARE Condition: Good Prescriptions: Dicyclomine [Bentyl] 10 mg PO TID PRN 5 Days #15 capsule PRN Reason: Pain Is patient prescribed a controlled substance at d/c from ED?: No Referrals: None,Stated [Primary Care Provider] - 1-2 days Forms: PH Area PCPs Time of Disposition: 20:40
[2024-06-28] MEDS: KETOROLAC 15 MG/ML 1 ML VIAL IVP STA (20:41)
[2024-06-28] MEDS: ONDANSETRON 4 MG/2 ML VIAL IVP STA (20:42)
[2024-06-28] MEDS: SODIUM CHLORIDE 0.9% 1,000 ML IV SCH (20:42)
[2024-06-28] MEDS: PANTOPRAZOLE 40 MG/10 ML VIAL IVP STA (20:42)
[2024-06-28] MEDS: ONDANSETRON 4 MG ODT STARTER PACK 2 TAB BTL PO STA (20:58)
[2024-06-28] MEDS: DICYCLOMINE 10 MG CAP PO STA (20:58)
[2024-06-28 21:02] VITALS: BP 134/83; PULSE 92; RESP 17
== END 2024-06-28 21:02 | disposition home or self-care (01) ==
LOC: EC 18:34
DX: R19.7 Diarrhea, unspecified (principal); R11.2 Nausea with vomiting, unspecified; F17.290 Nicotine dependence, other tobacco product, uncomplicated
CPT/HCPCS: 81001; 81025; 87636; 99284; S0119

== ENCOUNTER 2024-08-23 17:01 | Emergency (ER) | payer OTHER ==
--- NOTE | 2024-08-23 17:48 | ED ---
Female Urogenital HPI - General Chief complaint: Vaginal Bleeding Stated complaint: Abd pain/vaginal spotting poss 8 weeks Time Seen by Provider: 08/23/24 17:34 Source: patient Mode of arrival: ambulatory Limitations: no limitations - History of Present Illness Initial comments: 29-year-old female presents emergency department reporting vaginal pain and spotting. Patient believes that she is approximately 8 to [address] menstrual cycle was June 23. States that this morning she began having some cramping in the suprapubic region as well as on the right. She also had mild pink bleeding this morning. She denies having any care for this thus far. Denies any concern for sexually transmitted infections. Denies dysuria, hematuria or difficulty voiding. No diarrhea, constipation, black or bloody stools. No fevers. No abdominal trauma. No other alleviating, precipitating modifying factors Last Menstrual Period: 06/23/24 - Related Data Home Medications Medication Instructions Recorded Confirmed Vit No.180/Iron/Folic 1 tablet PO DAILY 01/11/18 07/07/18 [ Plus Tablet] Ferrous Sulfate [Feosol] 325 mg PO DAILY 07/07/18 07/07/18 Previous Rx's Medication Instructions Recorded Cyclobenzaprine [Flexeril] 5 mg PO TID PRN #15 tablet 03/04/19 Ibuprofen [Motrin] 600 mg PO Q8HR PRN #30 tab 03/04/19 Ibuprofen [Motrin] 800 mg PO Q6HR #20 tab 11/05/19 Penicillin V Potassium [Pen Vee K] 500 mg PO QID #40 tablet 11/05/19 Azithromycin [Zithromax Z-pack (6 0 mg PO DIRECTED #1 pack 03/24/20 tabs)] Amoxicillin/Potassium Clav 1 tab PO Q12HR #20 tab 06/23/20 [Augmentin 875-125 Tablet] Amoxic-Pot Clav 875-125Mg 1 tab PO Q12HR #20 tab 10/20/22 [Augmentin 875-125] Sulfamethox-Tmp 800-160Mg [Bactrim 1 each PO Q12HR #20 tab 11/01/23 Ds] Amoxicillin 875 mg PO Q12HR #20 tablet 05/25/24 Dicyclomine [Bentyl] 10 mg PO TID PRN 5 Days #15 capsule 06/28/24 Cephalexin [Keflex] 500 mg PO BID #14 cap 08/23/24 Allergies Allergy/AdvReac Type Severity Reaction Status Date / Time No Known Allergies Allergy Verified 08/23/24 17:04 Review of Systems ROS Statement: Those systems with pertinent positive or pertinent negative responses have been documented in the HPI. ROS Other: All systems not noted in ROS Statement are negative. Past Medical History Past Medical History: No Reported History Additional Past Medical History / Comment(s): hx kidney stones, gallbladder stones History of Any Multi-Drug Resistant Organisms: None Reported Past Surgical History: Section, Cholecystectomy Past Anesthesia/Blood Transfusion Reactions: No Reported Reaction Past Psychological History: Anxiety Smoking Status: Vaper Past Alcohol Use History: Daily Past Drug Use History: Marijuana - Past Family History Mother Family Medical History: No Reported History General Exam Limitations: no limitations General appearance: alert, in no apparent distress Head exam: Present: atraumatic, normocephalic, normal inspection Eye exam: Present: normal appearance, PERRL, EOMI. Absent: scleral icterus, conjunctival injection, periorbital swelling ENT exam: Present: normal exam, mucous membranes moist Neck exam: Present: normal inspection. Absent: tenderness, meningismus, lymphadenopathy Respiratory exam: Present: normal lung sounds bilaterally. Absent: respiratory distress, wheezes, rales, rhonchi, stridor Cardiovascular Exam: Present: regular rate, normal rhythm, normal heart sounds. Absent: systolic murmur, diastolic murmur, rubs, gallop, clicks GI/Abdominal exam: Present: soft, normal bowel sounds. Absent: distended, te nderness, guarding, rebound, rigid Extremities exam: Present: normal inspection, full ROM, normal capillary refill. Absent: tenderness, pedal edema, joint swelling, calf tenderness Back exam: Present: normal inspection Neurological exam: Present: alert, oriented X3, CN II-XII intact Psychiatric exam: Present: normal affect, normal mood Skin exam: Present: warm, dry, intact, normal color. Absent: rash Course Vital Signs 08/23/24 08/23/24 17:02 19:47 Temperature 98.2 F 97.9 F Pulse Rate 84 85 Respiratory 16 17 Rate Blood Pressure 134/70 136/80 O2 Sat by Pulse 100 100 Oximetry Medical Decision Making - Medical Decision Making Was pt. sent in by a medical professional or institution (LOWELL Copeland, CLAY MACHINE OPERATOR, urgent care, hospital, or fpc...) When possible be specific @ -No Did you speak to anyone other than the patient for history (EMS, parent, family, police, friend...)? What history was obtained from this source @ -No Did you review nursing and triage notes (agree or disagree)? Why? @ -I reviewed and agree with nursing and triage notes Were old charts reviewed (outside hosp., previous admission, EMS record, old EKG, old radiological studies, urgent care reports/EKG's, fpc records)? Report findings @ -No old charts were reviewed Differential Diagnosis (chest pain, altered mental status, abdominal pain women, abdominal pain men, vaginal bleeding, weakness, fever, dyspnea, syncope, headache, dizziness, GI bleed, back pain, seizure, CVA, palpatations, mental health, musculoskeletal)? @ -Differential Vaginal Bleeding: Spontaneous , threatened , molar , ectopic , bloody show, incompetent cervix, abruptioplacenta, placenta previa, uterine rupture, dysfunctional uterine bleeding, hemorrhage, uterine fibroids, this is not meant to be an all-inclusive list. EKG interpreted by me (3pts min.). @ -Not done X-rays interpreted by me (1pt min.). @ -None done CT interpreted by me (1pt min.). @ -None done U/S interpreted by me (1pt. min.). @ -yes which demonstrates single live intrauterine measuring 7 weeks. Heart rate of 125 What testing was considered but not performed or refused? (CT, X-rays, U/S, labs)? Why? @ -None What meds were considered but not given or refused? Why? @ -None Did you discuss the management of the patient with other professionals (professionals i.e. LOWELL Copeland, CLAY MACHINE OPERATOR, lab, RT, psych nurse, manager social services, dance costume designer, teacher, accounting officer, casework manager)? Give summary @ -No Was smoking cessation discussed for >3mins.? @ -No Was critical care preformed (if so, how long)? @ -No Were there social determinants of health that impacted care today? How? (Homelessness, low income, unemployed, alcoholism, drug addiction, transportation, low edu. Level, literacy, decrease access to med. care, [facility], rehab)? @ -No Was there de-escalation of care discussed even if they declined (Discuss DNR or withdrawal of care, Hospice)? DNR status @ -No What co-morbidities impacted this encounter? (DM, HTN, Smoking, COPD, CAD, Cancer, CVA, ARF, Chemo, Hep., AIDS, mental health diagnosis, sleep apnea, morbid obesity)? @ -None Was patient admitted / discharged? Hospital course, mention meds given and route, prescriptions, significant lab abnormalities, going to OR and other pertinent info. @ -Upon arrival patient seen and evaluated in room 18. Thorough history and physical exam was performed. IV access was established. Laboratory studies are conducted. Patient goes for ultrasound. Ultrasound does demonstrate in trauterine measuring 7 weeks. Patient's blood type is Rh+. Ultrasound does demonstrate heart tones. Results are discussed with patient. She states her bleeding essentially stopped. She will be discharged home at this time. Instructed follow-up with her DIRECTOR COMPLIANCE and return for any new or worsening symptoms Undiagnosed new problem with uncertain prognosis? @ -No Drug Therapy requiring intensive monitoring for toxicity (Heparin, Nitro, Insulin, Cardizem)? @ -No Were any procedures done? @ -No Diagnosis/symptom? @ -Acute vaginal bleeding, threatened miscarriage Acute, or Chronic, or Acute on Chronic? @ -Default Uncomplicated (without systemic symptoms) or Complicated (systemic symptoms)? @ -Complicated Side effects of treatment? @ -No Exacerbation, Progression, or Severe Exacerbation? @ -No Poses a threat to life or bodily function? How? (Chest pain, [place], [place], pneumonia, PE, COPD, DKA, ARF, appy, cholecystitis, CVA, Diverticulitis, Homicidal, Suicidal, threat to staff... and all critical care pts) @ -No - Lab Data Result diagrams: 08/23/24 17:55 08/23/24 17:55 Lab Results 08/23/24 08/23/24 08/23/24 Range/Units 17:55 17:55 17:55 WBC 17.08 H (4.50-10.00) 10*3/uL RBC 4.74 (4.10-5.20) 10*6/uL Hgb 11.1 L (12.0-15.0) g/dL Hct 35.7 L (37.2-46.3) % MCV 75.3 L (80.0-97.0) fL MCH 23.4 L (27.0-32.0) pg MCHC 31.1 L (32.0-37.0) g/dL Plt Count 375 (140-440) 10*3/uL MPV 9.5 (9.5-12.2) fL Immature Gran % (Auto) 0.4 % Neutrophils % 67.8 % Lymphocytes % 24.5 % Monocytes % 5.6 % Eosinophils % 1.3 % Basophils % 0.4 % Immature Gran # 0.07 H (0.00-0.04) 10*3/uL Neutrophils # 11.59 H (1.80-7.70) 10*3/uL Lymphocytes # 4.19 (0.90-5.00) 10*3/uL Monocytes # 0.95 (0.20-1.00) 10*3/uL Eosinophils # 0.22 (0.04-0.35) 10*3/uL Basophils # 0.06 (0.00-0.10) 10*3/uL Sodium 137 (137-145) mmol/L Potassium 4.6 (3.5-5.1) mmol/L Chloride 105 (98-107) mmol/L Carbon Dioxide 19 L (22-30) mmol/L Anion Gap 13 mmol/L BUN 7 (7-17) mg/dL Creatinine 0.63 (0.52-1.04) mg/dL Est GFR (CKD-EPI)AfAm >90 (>60 ml/min/1.73 sqM) Est GFR (CKD-EPI)NonAf >90 (>60 ml/min/1.73 sqM) Glucose 84 (74-99) mg/dL Calcium 9.7 (8.4-10.2) mg/dL Total Bilirubin 0.5 (0.2-1.3) mg/dL AST 27 (14-36) U/L ALT 16 (4-34) U/L Alkaline Phosphatase 98 (38-126) U/L Total Protein 8.3 H (6.3-8.2) g/dL Albumin 4.5 (3.5-5.0) g/dL HCG, Quant 780208.0 mIU/mL Urine Color Colorless Urine Appearance Cloudy H (Clear) Urine pH 6.0 (5.0-8.0) Ur Specific [place] 1.013 (1.001-1.035) Urine Protein Negative (Negative) Urine Glucose (UA) Negative (Negative) Urine Ketones Negative (Negative) Urine Blood Negative (Negative) Urine Nitrite Positive H (Negative) Urine Bilirubin Negative (Negative) Urine Urobilinogen <2.0 (<2.0) mg/dL Ur Leukocyte Esterase Large H (Negative) Urine RBC 5 (0-5) /hpf Urine WBC 140 H (0-5) /hpf Ur Squamous Epith Cells 11 H (0-4) /hpf Urine Bacteria Many H (None) /hpf Urine Mucus Rare H (None) /hpf Blood Type Blood Type Recheck Bld Type Recheck Status Antibody Screen Spec Expiration Date 08/23/24 Range/Units 17:55 WBC (4.50-10.00) 10*3/uL RBC (4.10-5.20) 10*6/uL Hgb (12.0-15.0) g/dL Hct (37.2-46.3) % MCV (80.0-97.0) fL MCH (27.0-32.0) pg MCHC (32.0-37.0) g/dL Plt Count (140-440) 10*3/uL MPV (9.5-12.2) fL Immature Gran % (Auto) % Neutrophils % % Lymphocytes % % Monocytes % % Eosinophils % % Basophils % % Immature Gran # (0.00-0.04) 10*3/uL Neutrophils # (1.80-7.70) 10*3/uL Lymphocytes # (0.90-5.00) 10*3/uL Monocytes # (0.20-1.00) 10*3/uL Eosinophils # (0.04-0.35) 10*3/uL Basophils # (0.00-0.10) 10*3/uL Sodium (137-145) mmol/L Potassium (3.5-5.1) mmol/L Chloride (98-107) mmol/L Carbon Dioxide (22-30) mmol/L Anion Gap mmol/L BUN (7-17) mg/dL Creatinine (0.52-1.04) mg/dL Est GFR (CKD-EPI)AfAm (>60 ml/min/1.73 sqM) Est GFR (CKD-EPI)NonAf (>60 ml/min/1.73 sqM) Glucose (74-99) mg/dL Calcium (8.4-10.2) mg/dL Total Bilirubin (0.2-1.3) mg/dL AST (14-36) U/L ALT (4-34) U/L Alkaline Phosphatase (38-126) U/L Total Protein (6.3-8.2) g/dL Albumin (3.5-5.0) g/dL HCG, Quant mIU/mL Urine Color Urine Appearance (Clear) Urine pH (5.0-8.0) Ur Specific [place] (1.001-1.035) Urine Protein (Negative) Urine Glucose (UA) (Negative) Urine Ketones (Negative) Urine Blood (Negative) Urine Nitrite (Negative) Urine Bilirubin (Negative) Urine Urobilinogen (<2.0) mg/dL Ur Leukocyte Esterase (Negative) Urine RBC (0-5) /hpf Urine WBC (0-5) /hpf Ur Squamous Epith Cells (0-4) /hpf Urine Bacteria (None) /hpf Urine Mucus (None) /hpf Blood Type A Positive Blood Type Recheck A Pos Bld Type Recheck Status No Antibody Screen NEGATIVE Spec Expiration Date 08/26/2024 - 2354 Disposition Clinical Impression: First trimester bleeding, UTI (urinary tract infection) Disposition: HOME SELF-CARE Condition: Stable Instructions (If sedation given, give patient instructions): Non-Threatening First Trimester Vaginal Bleed (ED) Additional Instructions: Please take the antibiotics starting tomorrow. Follow-up with the DIRECTOR COMPLIANCE. Return to the emergency department for any new or worsening symptoms Prescriptions: Cephalexin [Keflex] 500 mg PO BID #14 cap Is patient prescribed a controlled substance at d/c from ED?: No Referrals: Aguila Khan MD [STAFF PHYSICIAN] - 1-2 days Time of Disposition: 19:07
[2024-08-23 18:14] LABS: Basophils # (A) 0.06 10*3/uL (0.00-0.10); Basophils % (A) 0.4 %; Eosinophils # (A) 0.22 10*3/uL (0.04-0.35); Eosinophils % (A) 1.3 %; HCT 35.7 % (37.2-46.3); HGB 11.1 g/dL (12.0-15.0); Lymphocytes # (A) 4.19 10*3/uL (0.90-5.00); Lymphocytes % (A) 24.5 %; MCH 23.4 pg (27.0-32.0); MCHC 31.1 g/dL (32.0-37.0); MCV 75.3 fL (80.0-97.0); Monocytes # (A) 0.95 10*3/uL (0.20-1.00); Monocytes % (A) 5.6 %; Neutrophils # (A) 11.59 10*3/uL (1.80-7.70); Neutrophils % (A) 67.8 %; Platelet Count 375 10*3/uL (140-440); RBC 4.74 10*6/uL (4.10-5.20); RDW 18.8 % (11.5-14.5); WBC 17.08 10*3/uL (4.50-10.00)
[2024-08-23 18:24] LABS: ALT 16 U/L (4-34); African American GFR (CKD) >90 (>60 ml/min/1.73 sqM); Albumin 4.5 g/dL (3.5-5.0); Anion Gap 13 mmol/L; Blood Urea Nitrogen 7 mg/dL (7-17); Calcium 9.7 mg/dL (8.4-10.2); Carbon Dioxide 19 mmol/L (22-30); Chloride 105 mmol/L (98-107); Glucose 84 mg/dL (74-99); Non-African American GFR(CKD) >90 (>60 ml/min/1.73 sqM); Sodium 137 mmol/L (137-145); Total Protein 8.3 g/dL (6.3-8.2)
[2024-08-23 18:33] LABS: AST 27 U/L (14-36); Potassium 4.6 mmol/L (3.5-5.1)
[2024-08-23 18:34] LABS: Alkaline Phosphatase 98 U/L (38-126)
--- NOTE | 2024-08-23 18:40 | US ---
EXAMINATION TYPE: Transabdominal DATE OF EXAM: 08/23/2024 6:29 PM COMPARISON: NONE CLINICAL INDICATION: Female, 29 years old with history of , bleeding; pt states vag spotting and cramping TECHNIQUE: Transabdominal (TA) with grayscale and color Doppler imaging including first trimester pre gnancy. FINDINGS: EXAM MEASUREMENTS: GESTATIONAL AGE / DATING Physician Established: Not yet established Dates by LMP: (8 weeks/5 days) EDC: 03/30/2025 Dates by First Scan: No previous this is first scan Dates by Current Scan for: (7 weeks/0 days) EDC: 04/11/2025 MATERNAL ANATOMY Uterus: 9.5 x 6.0 x 6.4cm. retroverted Right Ovary: 2.5 x 1.8 x 2.1cm Left Ovary: 3.2 x 2.5 x 1.8cm Post CDS / Adnexa: wnl Presence of free fluid: no Presence of corpus luteal cyst: not seen Presence of subchorionic bleed: not seen GESTATION / SURVEY CRL: .90cm (7 weeks/0 days) Gestational Sac morphology: Normal Yolk Sac (normal less than 6mm): 3mm Cardiac Activity/Heart Rate: 125 bpm Rhythm: Normal IUP: Viable IUP Date of LMP: 06/23/2024 Beta HcG (if available): Not available at this time IMPRESSION: Single live intrauterine with calculated ultrasound age of 7 weeks 0 days by crown rump regi gth with an estimated date of delivery of 04/11/2025 [facility], , 08/23/2024 6:37 PM
[2024-08-23 18:43] LABS: Bacteria,Urine Many /hpf; Bilirubin,Urine Negative (Negative); Blood,Urine Negative (Negative); Color,Urine Colorless; Glucose,Urine (UA) Negative (Negative); Ketones,Urine Negative (Negative); Leukocyte Esterase,Urine Large (Negative); Mucus,Urine Rare /hpf; Nitrite,Urine Positive (Negative); PH, Urine 6.0 (5.0-8.0); Protein,Urine Negative (Negative); RBC,Urine 5 /hpf (0-5); Specific Gravity,Urine 1.013 (1.001-1.035); Squamous Epithelial Cell,Urine 11 /hpf (0-4); Urobilinogen,Urine <2.0 mg/dL (<2.0); WBC,Urine 140 /hpf (0-5)
[2024-08-23] MEDS: cefTRIAXone IN SWFI 1,000 MG/10 ML SYRINGE IVP STA (19:42)
[2024-08-23 19:44] LABS: HCG,Quantitative Serum 200012.0 mIU/mL
[2024-08-23 19:48] VITALS: BP 136/80; PULSE 85; RESP 17; TEMP 97.9
== END 2024-08-23 19:47 | disposition home or self-care (01) ==
LOC: EC 17:01
DX: O23.41 Unspecified infection of urinary tract in pregnancy, first trimester (principal); O20.9 Hemorrhage in early pregnancy, unspecified; O20.0 Threatened abortion; F17.290 Nicotine dependence, other tobacco product, uncomplicated
CPT/HCPCS: 36415; 86900; 86901; 80053; 85025; 86850; 81001; 84702; 76801; 99284; 96374; J0696